=== PATIENT | male | born 1960 | race African-American/Black ===

== ENCOUNTER 2016-12-05 14:27 | Emergency (ER) | payer OTHER ==
[2016-12-05] MEDS ORDERED: VANCOMYCIN 1 GM/NS 250 ML ONE (16:29)
--- NOTE | 2016-12-05 16:48 | PROVIDER DOCUMENTATION ---
HPI-General Adult - General Chief Complaint: Edema Stated Complaint: FEET SWELLING Time Seen by Provider: 12/05/16 16:32 Allergies/Adverse Reactions: Patient Allergies Allergy/AdvReac Type Severity Reaction Status Date / Time No Known Allergies Allergy Verified 12/05/16 17:14 Home Medications: Home Medication List Medication Instructions Recorded Confirmed Last Taken Type Carvedilol 25 mg PO BID 02/18/13 12/05/16 12/05/16 History Aspirin EC 81 mg PO DAILY #30 tablet 05/26/16 12/05/16 12/05/16 Rx Clopidogrel [Plavix] 75 mg PO DAILY #30 tablet 05/26/16 12/05/16 12/05/16 Rx LISINOpril [Prinivil] 20 mg PO DAILY #30 05/26/16 12/05/16 12/05/16 Rx Atorvastatin Calcium [Lipitor] 40 mg PO DAILY 12/05/16 12/05/16 12/05/16 History Clindamycin [Cleocin] 300 mg PO Q6HR #20 capsule 12/05/16 Unknown Rx Tramadol [Ultram] 50 mg PO Q6H PRN PRN #15 tablet 12/05/16 Unknown Rx - History of Present Illness -Gen Adult Nature of Presenting Problems: Pt comes in with complaint of left foot swelling. He has CHF and ESRD with Hemodialysis. He states the swelling has increased over the last couple of days and is very tender. He is worried there is glass stuck in it as he is diabetic. Review of Systems - Adult - REVIEW OF SYSTEMS - ADULT Constitutional: reports: no symptoms reported. denies: chills, fever, fatique, night sweats, weight gain, weight loss Eyes: reports: no symptoms reported. denies: discharge, dry eyes, decreased vision, blurred vision, double vision, eye pain, redness Ears, Nose, Mouth & Throat: reports: no symptoms reported. denies: ear discharge, hearing loss, tinnitus, sinus problem, nose pain, loose teeth, hoarseness, throat pain Cardiovascular: reports: see HPI, edema. denies: chest pain, irregular heart rate, orthopnea, palpitations, poor circulation Respiratory: reports: no symptoms reported. denies: chronic cough, cough, excessive sputum production, hemoptysis, pleurisy, shortness of breath, wheezing Gastrointestinal: reports: poor appetite. denies: abdominal pain, constipation , diarrhea, frequent heartburn, nausea, rectal bleeding, vomiting Genitourinary: reports: no symptoms reported. denies: dysuria, discharge, frequency, frequent UTI's, hematuria, incontinence, urinary retention, urgency Musculoskeletal: reports: no symptoms reported. denies: bone pain, back pain, frequent leg cramps, joint pain, muscle aches, muscle weakness, neck pain Integumentary: reports: see HPI. denies: hives, hair loss, itching, nail changes, rash, skin sores/ulcer, skin thickening Neurological: reports: no symptoms reported. denies: ataxia, dizziness/vertigo , headache/migraines, loss of balance, numbness, seizure, slurred speech, syncope, tremors Psychiatric: reports: no symptoms reported. denies: anxiety, anti-depressant use, depression, emotional problems, panic attacks, suicidal thoughts Endocrine: reports: no symptoms reported. denies: change in skin pigment, excessive sweating, heat intolerance, increased thirst, polyuria Hematologic/Lymphatic: reports: no symptoms reported. denies: blood clots, easy bruising, low blood count, prolonged bleeding, swollen lymph nodes, transfusions Allergic/Immunologic: reports: no symptoms reported. denies: allergic reactions , eczema, frequent infections, hay fever, hives, positive PPD, urticaria All Other Systems: Reviewed and Negative Past History - Adult - PAST MEDICAL HISTORY-ADULT Review of Records: reports: Old Records Reviewed, Nursing Assessment Review, Medications Reviewed, Social history reviewed & non-contributory. Major Childhood Illnesses: reports: denies history Cardiovascular: reports: CHF Respiratory: reports: denies history Gastrointestinal: reports: denies history Obstetrical/Gynecological: reports: denies history Genitourinary: reports: dialysis, ESRD Musculoskeletal: reports: denies history Neurological: reports: CVA Endocrine/Immune: reports: Diabetes Other Conditions: reports: denies history - PRIOR SURGERIES/PROCEDURES Surgical/Procedure History: reports: appendectomy, CABG, orthopedic (extremity) (plate in R forearm), other (port access) - IMMUNIZATION STATUS Childhood Immunizations: See Nurse Assessment Flu Vaccine: See Nurse Assessment - FAMILY HISTORY Family History: reviewed, not pertinent - SOCIAL HISTORY Substance Use: none/never Alcohol Use Frequency: never Living Situation: family Physical Exam-General - PHYSICAL EXAM-ADULT Initial Vital Signs Reviewed: Yes - CONSTITUTIONAL General Appearance: alert, no apparent distress, thin - EYES Eyes: PERRL/EOMI, pink conjunctivae - HEAD, EARS, NOSE, MOUTH & THROAT HENMT: normocephalic/atraumatic, moist mucous membranes, normal ENT inspection - NECK Neck: non-tender, full range of motion - RESPIRATORY Respiratory: chest non-tender, normal breath sounds, no pleuratic chest pain, no respiratory distress, crackles - CARDIOVASCULAR Cardiovascular: normal peripheral pulses, regular rate, rhythm, other (pedal edema right 2+ left 3+) - GASTROINTESTINAL (ABDOMEN) Abdominal Exam: normal bowel sounds, non tender, soft, no organomegaly - GENITOURINARY Rectal Exam: deferred - MUSCULOSKELETAL Back Exam: normal inspection, no CVA tenderness, no vertebral tenderness Extremity: normal range of motion, no calf tenderness, pedal edema, swelling, tenderness Peripheral Pulses: radial (R): 2+, radial (L): 2+, dorsalis-pedis (R): 1+, dorsalis-pedis (L): 1+ - SKIN Integumentary: normal color, normal turgor, warm/dry, other (dry and flaking) - NEUROLOGIC Neurologic: pole shaver helper II-XII nml as tested, grossly normal - PSYCHIATRIC Psych/Mental Status: normal mood/affect, normal thought content, normal thought process, oriented x 3 Progress - PLAN OF CARE/RESULTS Progress/Plan/Lab Results: Laboratory Tests 12/05/16 12/05/16 12/05/16 17:24 17:24 17:24 WBC 7.88 RBC 4.80 Hgb 12.5 L Hct 38.4 L MCV 80.0 L MCH 26.0 L MCHC 32.6 L RDW Std Deviation 16.8 H Plt Count 308 MPV 9.7 Immature Gran % (Auto) 0.0 Neut % (Auto) 71.8 Lymph % (Auto) 18.0 L Barnwell % (Auto) 8.9 Eos % (Auto) 0.9 Baso % (Auto) 0.4 Immature Gran # (Auto) 0.00 Neut # (Auto) 5.66 Lymph # (Auto) 1.42 Barnwell # (Auto) 0.70 H Eos # (Auto) 0.07 Baso # (Auto) 0.03 PT INR PTT (Actin FS) Sodium 138 Potassium 4.2 Chloride 93 L Carbon Dioxide 25 Anion Gap 20 BUN 51 H Creatinine 10.0 H* Estimated GFR/1.73 m2 7 BUN/Creatinine Ratio 5 Glucose 79 Calculated Osmolality 288 Calcium 9.8 Magnesium 2.4 Total Bilirubin 0.44 AST 8 L ALT 10 Alkaline Phosphatase 71 Creatine Kinase 62 Troponin T Ujd-P-Uzbezhfgrfe Pept 76491 H Total Protein 9.6 H Albumin 4.0 Globulin 5.6 Albumin/Globulin Ratio 0.7 12/05/16 12/05/16 17:24 17:24 WBC RBC Hgb Hct MCV MCH MCHC RDW Std Deviation Plt Count MPV Immature Gran % (Auto) Neut % (Auto) Lymph % (Auto) Barnwell % (Auto) Eos % (Auto) Baso % (Auto) Immature Gran # (Auto) Neut # (Auto) Lymph # (Auto) Barnwell # (Auto) Eos # (Auto) Baso # (Auto) PT 10.8 INR 1.06 PTT (Actin FS) 30.5 Sodium Potassium Chloride Carbon Dioxide Anion Gap BUN Creatinine Estimated GFR/1.73 m2 BUN/Creatinine Ratio Glucose Calculated Osmolality Calcium Magnesium Total Bilirubin AST ALT Alkaline Phosphatase Creatine Kinase Troponin T 0.208 H Sns-B-Zplrvvuszez Pept Total Protein Albumin Globulin Albumin/Globulin Ratio Orders Category Date Time Status Cardiac Monitoring DIRECTED Care 12/05/16 16:33 Active Saline Loc NOW Care 12/05/16 16:33 Active CHEST-2 VIEWS [RAD] Stat Exams 12/05/16 16:33 Draft FOOT COMPLETE LEFT [RAD] Stat Exams 12/05/16 16:39 Draft CBC WITH ELECTRONIC DIFF [HEME] Stat Lab 12/05/16 17:24 Completed CK PROFILE [SP CHEM] Stat Lab 12/05/16 17:24 Completed COMPREHENSIVE METABOLIC PANEL [CHEM] Stat Lab 12/05/16 17:24 Completed MAGNESIUM [CHEM] Stat Lab 12/05/16 17:24 Completed PRO B-NATRIURETIC PEPTIDE Stat Lab 12/05/16 17:24 Completed PROTIME WITH INR [COAG] Stat Lab 12/05/16 17:24 Completed PTT [COAG] Stat Lab 12/05/16 17:24 Completed TROPONIN T Stat Lab 12/05/16 17:24 Completed Clindamycin [Cleocin] Med 12/05/16 19:13 Discontinued 450 mg PO NOW ONE Dexamethasone [Decadron] Med 12/05/16 19:14 Discontinued 10 mg IM NOW ONE Tramadol [Ultram] Med 12/05/16 19:13 Discontinued 50 mg PO NOW ONE Vancomycin 1 gm/Ns 250 ml Med 12/05/16 16:29 Discontinued .ROUTE As Directed EKG [EKG] Stat Ther 12/05/16 16:33 Ordered Vital Signs - 24 hr 12/05/16 12/05/16 14:43 17:21 Temperature 98.6 F Pulse Rate 95 H 90 Respiratory 18 16 Rate Blood Pressure 142/86 191/89 O2 Sat by Pulse 100 100 Oximetry - XRAY 1 XRAY Study: Chest Impression: Normal, See EMR Report 2 XRAY: Left XRAY Study: Foot Impression: See EMR Report XRAY Interpretation: bone spur (rad) Departure - Departure Time of Disposition Order: 19:15 DIAGNOSIS: Bone spur, ESRD (end stage renal disease) on dialysis, Cellulitis and abscess of foot excluding toe Disposition: HOME 01 Certified Medical Emergency: Emergent Condition: Good Additional Instructions: follow up with dr salazar for bone spur ED Follow Up Instructions: You have been treated by a care provider in the Emergency Department. These instructions are being provided to you so you can have an understanding of how to care for yourself upon discharge. Upon discharge from the Emergency Department, you are responsible for making arrangements for follow-up care by a physician of your choice. Take all prescribed medications as directed. Return to the Emergency Department immediately for any new or worsening symptoms. You may call the Physician Referral phone number at [phone] to obtain a list of Physicians who are taking new patients. Prescriptions: Tramadol [Ultram] 50 mg PO Q6H PRN PRN #15 tablet PRN Reason: Pain Clindamycin [Cleocin] 300 mg PO Q6HR #20 capsule Referrals: Toñito Dillon MD [Primary Care Provider] - Lino Salazar MD [STAFF PHYSICIAN] - Attestation - Physician/ AUGIE Attestation Patient care was provided by Advanced Practice Provider:: Yes Advanced Practice Provider:: Geovanna Louise Advanced Practice Provider documentation review:: The Mid-level provider documentation, treatment plan and medical decision making was reviewed by the physician who agrees with all treatment and medical decision making by the P.
--- NOTE | 2016-12-05 17:24 | Diag Imaging Result Document ---
PROCEDURE NAME: CHEST-2 VIEWS - 12/05/2016 CHEST 2 VIEWS: COMPARISON: 05/28/16 and 05/22/2016. FINDINGS: Heart size appears within normal limits. There are sternal wires from previous surgery again seen. There are right lower lung granuloma and calcified right hilar lymph nodes from old granulomatous disease which are stable. There is slight prominence of central markings, which appears to be chronic. There is no consolidation, pleural effusion, or pneumothorax identified. There is thoracic spondylosis noted. IMPRESSION: No evidence of acute disease.
[2016-12-05 17:33] LABS: MANUAL DIFF NEEDED? NO
[2016-12-05 17:37] LABS: BASO% 0.4 % (0.0-0.8); EOS# 0.07 X1000 (0.0-0.7); EOS% 0.9 % (0.0-10.0); HEMATOCRIT 38.4 % (42.0-52.0); HEMOGLOBIN 12.5 g/dL (14.0-18.0); LYMPH# 1.42 X1000 (1.2-3.4); MCHC 32.6 g/dL (33-37); MONO% 8.9 % (1.7-9.3); MPV 9.7 FL (7.4-10.4); NEUT% 71.8 % (42.2-75.2); PLT 308 X1000 (130-400)
--- NOTE | 2016-12-05 17:42 | Diag Imaging Result Document ---
PROCEDURE NAME: FOOT COMPLETE LEFT - 12/05/2016 LEFT FOOT 3 VIEWS: FINDINGS: There is generalized soft tissue swelling. There are atherosclerotic calcifications noted. There is calcaneal spurring at the Achilles tendon insertion. There is no fracture or dislocation identified. There are no erosive or destructive changes identified. IMPRESSION: 1. Generalized soft tissue swelling. Atherosclerotic calcifications. 2. No fracture or dislocation identified. 3. No evidence of osteomyelitis. Please note that early osteomyelitis can be radiographically occult. [facility]
[2016-12-05 17:59] LABS: CALCIUM 9.8 mg/dL (8.8-10.2); MAGNESIUM 2.4 mg/dL (1.5-2.7); POTASSIUM 4.2 mmol/L (3.5-5.1); TOTAL BILIRUBIN 0.44 mg/dL (0.20-1.00); TOTAL PROTEIN 9.6 g/dL (6.3-8.3)
[2016-12-05 18:38] LABS: INR 1.06; PROTIME 10.8 Seconds (9.2-11.7); PTT 30.5 Seconds (22.0-36.0)
[2016-12-05] MEDS ORDERED: CLEOCIN PO ONE (19:13)
[2016-12-05] MEDS ORDERED: ULTRAM PO ONE (19:13)
[2016-12-05] MEDS ORDERED: DECADRON IM ONE (19:14)
[2016-12-05 20:20] VITALS: BP 172/84
== END 2016-12-05 20:15 | disposition home or self-care (01) ==
LOC: ED 14:27
DX: L03.116 Cellulitis of left lower limb (principal); M77.32 Calcaneal spur, left foot; I12.0 Hypertensive chronic kidney disease with stage 5 chronic kidney disease or end stage renal disease; N18.6 End stage renal disease; Z99.2 Dependence on renal dialysis; R60.9 Edema, unspecified; Z86.73 Personal history of transient ischemic attack (TIA), and cerebral infarction without residual deficits; E11.9 Type 2 diabetes mellitus without complications; Z79.899 Other long term (current) drug therapy; Z95.1 Presence of aortocoronary bypass graft; Z79.02 Long term (current) use of antithrombotics/antiplatelets; Z79.82 Long term (current) use of aspirin
CPT/HCPCS: 71020; 80053; 82550; 83735; 83880; 84484; 85025; 85610; 85730; 93005; J3370

== ENCOUNTER 2016-12-29 13:47 | Inpatient (IN) ==
--- NOTE | 2016-12-29 16:38 | Diag Imaging Result Document ---
PROCEDURE NAME: CHEST-PORTABLE - 12/29/2016 PORTABLE CHEST X-RAY: COMPARISON: 12/05/2016. FINDINGS: Stable CABG changes. Heart size and pulmonary vascularity is grossly normal. Stable calcified granulomas in the right lung and hilum. No focal infiltrates, pneumothorax, or significant effusion. IMPRESSION: No acute disease.
[2016-12-29 16:59] LABS: BASO% 0.3 % (0.0-0.8); EOS# 0.11 X1000 (0.0-0.7); HEMATOCRIT 28.4 % (42.0-52.0); HEMOGLOBIN 9.6 g/dL (14.0-18.0); IMM GRAN# 0.05 X1000 (0.0-0.04); IMM GRAN% 0.5 % (0.0-0.5); LYMPH% 14.8 % (20.5-51.1); MANUAL DIFF NEEDED? NO; MCH 26.1 PG (27-31); MCHC 33.8 g/dL (33-37); MCV 77.2 FL (81-99); MONO# 0.89 X1000 (0.11-0.59); MONO% 8.2 % (1.7-9.3); MPV 10.5 FL (7.4-10.4); NEUT% 75.2 % (42.2-75.2); PLT 309 X1000 (130-400); RBC 3.68 XMIL (4.7-6.1)
[2016-12-29 17:06] LABS: INR 1.4; PTT 30.3 Seconds (22.0-36.0)
[2016-12-29 17:33] LABS: ALBUMIN 3.3 g/dL (3.5-5.0); CALCIUM 8.9 mg/dL (8.8-10.2); MAGNESIUM 2.5 mg/dL (1.5-2.7); POTASSIUM 5.5 mmol/L (3.5-5.1); TOTAL BILIRUBIN 0.6 mg/dL (0.20-1.00)
--- NOTE | 2016-12-29 17:34 | PROVIDER DOCUMENTATION ---
This chart was entered by Amy Rivas Scribe, acting as scribe for Phan Whalen MD. HPI-Musculoskeletal Pain/Inj - GENERAL Chief Complaint: Extremity Pain Stated Complaint: UNABLE TO GO TO DIALYSIS Time Seen by Provider: 12/29/16 15:15 Source: patient, family (brother in law) - HX OF PRESENT ILLNESS-MUSKULOSKELTAL Nature of Presenting Problem: Pt is 56 y/o M presents to the ED with L lower leg pain. Pt states pain has been present for one month. Pt denies fall or injury. Pt states has not been to dialysis in one month. Pt states can not walk or apply pressure to L foot. Quality of Pain: reports: aching Severity in ED: moderate Onset/Duration: other (1 month) Timing: still present Modifying Factors: improves with: nothing Any recent injury?: No Locality of Occurance: Home Similar Symptoms Previously?: Yes Recently seen or treated by another doctor?: No - LOWER EXTREMITY PAIN/INJURY Lower Extremities Pain: leg: left (lower leg pain ), foot: left Context / Method of Injury: reports: unknown Associated Symptoms: reports: weakness in legs/feet (L). denies: loss of bladder control, loss of bowel control, lower back pain, muscle spasms, numbness in legs/feet, sensory/motor loss, tingling in legs/feet Review of Systems - Adult - REVIEW OF SYSTEMS - ADULT Constitutional: reports: no symptoms reported Eyes: reports: no symptoms reported Ears, Nose, Mouth & Throat: reports: no symptoms reported Cardiovascular: reports: no symptoms reported Respiratory: reports: no symptoms reported Gastrointestinal: reports: no symptoms reported Genitourinary: reports: no symptoms reported Musculoskeletal: reports: other (LLE pain). denies: bone pain, joint pain, neck pain Integumentary: reports: no symptoms reported Neurological: reports: no symptoms reported Psychiatric: reports: no symptoms reported Endocrine: reports: no symptoms reported Hematologic/Lymphatic: reports: no symptoms reported Allergic/Immunologic: reports: no symptoms reported All Other Systems: Reviewed and Negative Past History - Adult - PAST MEDICAL HISTORY-ADULT Review of Records: reports: Nursing Assessment Review, Medications Reviewed, Social history reviewed & non-contributory. Major Childhood Illnesses: reports: denies history Cardiovascular: reports: CHF, HTN Respiratory: reports: denies history Gastrointestinal: reports: denies history Obstetrical/Gynecological: reports: denies history Genitourinary: reports: dialysis, ESRD, kidney disease Musculoskeletal: reports: denies history Neurological: reports: CVA Endocrine/Immune: reports: Diabetes Other Conditions: reports: denies history - PRIOR SURGERIES/PROCEDURES Surgical/Procedure History: reports: appendectomy, CABG, orthopedic (extremity) (plate in R forearm), other (port access) - IMMUNIZATION STATUS Childhood Immunizations: See Nurse Assessment Flu Vaccine: See Nurse Assessment - FAMILY HISTORY Family History: reviewed, not pertinent - SOCIAL HISTORY Smoking: cigarettes, greater than 1 pack/day Provider spent 3-5 mins advising pt. on dangers of tobacco.: Discussed manners to quit use, and f/u contacts for add'l counseling. Substance Use: denies Living Situation: family Physical Exam-Injury Related - Physical Exam-Injury Related Initial Vital Signs Reviewed: Yes General Appearance: appears well, alert, mild distress Eyes: PERRL/EOMI, pink conjunctivae, fundi clear, no AV nicking Head, Ears, Nose, Mouth & Throat: normocephalic/atraumatic, normal ENT inspection, TMs normal, pharynx normal. negative: moist mucous membranes (dry) Neck: non-tender, full range of motion, supple, normal inspection Respiratory: chest non-tender, lungs clear, normal breath sounds, no pleuratic chest pain, no respiratory distress, no accessory muscle use Cardiovascular: normal peripheral pulses, regular rate, rhythm, no edema, no gallop, no JVD, no murmur Peripheral Pulses: dorsalis-pedis (R): 2+, dorsalis-pedis (L): 2+ Abdominal Exam: normal bowel sounds, non tender, soft, no organomegaly, no pulsatile mass Lymphatic: no adenopathy Back Exam: normal inspection, no CVA tenderness, no vertebral tenderness Extremity: normal range of motion, non-tender, calf tenderness (L), pedal edema (bilateral) Integumentary: normal color, warm/dry Neurologic: grossly normal Psych/Mental Status: normal mood/affect Progress - PLAN OF CARE/RESULTS Progress/Plan/Lab Results: Vital Signs - 8 hr 12/29/16 13:50 Temperature 97.6 F Pulse Rate 92 H Respiratory Rate 14 Blood Pressure 151/80 O2 Sat by Pulse Oximetry 98 Laboratory Results - last 24 hr 04/04/0912/29/16 12/29/16 16:38 16:38 16:38 WBC 10.79 RBC 3.68 L Hgb 9.6 L Hct 28.4 L MCV 77.2 L MCH 26.1 L MCHC 33.8 RDW Std Deviation 17.3 H Plt Count 309 MPV 10.5 H Immature Gran % (Auto) 0.5 Neut % (Auto) 75.2 Lymph % (Auto) 14.8 L Bell % (Auto) 8.2 Eos % (Auto) 1.0 Baso % (Auto) 0.3 Immature Gran # (Auto) 0.05 H Neut # (Auto) 8.11 H Lymph # (Auto) 1.60 Bell # (Auto) 0.89 H Eos # (Auto) 0.11 Baso # (Auto) 0.03 PT INR PTT (Actin FS) Sodium 17 L* Potassium 5.5 H Chloride 100 Carbon Dioxide 17 L Anion Gap 26 BUN 136 H Creatinine 17.1 H* Estimated GFR/1.73 m2 4 BUN/Creatinine Ratio 8 Glucose 125 H Calculated Osmolality 328 Calcium 8.9 Magnesium 2.5 Total Bilirubin 0.60 AST 59 H ALT 81 H Alkaline Phosphatase 82 Creatine Kinase 250 H Troponin T Zrk-B-Jsvpqqogryh Pept > 12273 H Total Protein 8.0 Albumin 3.3 L Globulin 4.7 Albumin/Globulin Ratio 0.7 12/29/16 12/29/16 16:38 16:38 WBC RBC Hgb Hct MCV MCH MCHC RDW Std Deviation Plt Count MPV Immature Gran % (Auto) Neut % (Auto) Lymph % (Auto) Bell % (Auto) Eos % (Auto) Baso % (Auto) Immature Gran # (Auto) Neut # (Auto) Lymph # (Auto) Bell # (Auto) Eos # (Auto) Baso # (Auto) PT 15.0 H INR 1.40 PTT (Actin FS) 30.3 Sodium Potassium Chloride Carbon Dioxide Anion Gap BUN Creatinine Estimated GFR/1.73 m2 BUN/Creatinine Ratio Glucose Calculated Osmolality Calcium Magnesium Total Bilirubin AST ALT Alkaline Phosphatase Creatine Kinase Troponin T 0.494 H* Gef-H-Sanvthwaujs Pept Total Protein Albumin Globulin Albumin/Globulin Ratio Orders Category Date Time Status Cardiac Monitoring DIRECTED Care 12/29/16 16:08 Active Saline Loc NOW Care 12/29/16 16:08 Active CHEST-PORTABLE [RAD] Stat Exams 12/29/16 16:08 Completed CBC WITH ELECTRONIC DIFF [HEME] Stat Lab 12/29/16 16:38 Completed CK PROFILE [SP CHEM] Stat Lab 12/29/16 16:38 Results COMPREHENSIVE METABOLIC PANEL [CHEM] Stat Lab 12/29/16 16:38 Results MAGNESIUM [CHEM] Stat Lab 12/29/16 16:38 Results PRO B-NATRIURETIC PEPTIDE Stat Lab 12/29/16 16:38 Completed PROTIME WITH INR [COAG] Stat Lab 12/29/16 16:38 Completed PTT [COAG] Stat Lab 12/29/16 16:38 Completed TROPONIN T Stat Lab 12/29/16 16:38 Completed EKG [EKG] Stat Ther 12/29/16 16:08 Ordered Venous U/S Bilateral Legs Stat Ther 12/29/16 16:08 Completed Result Diagrams: 12/29/16 16:38 12/29/16 16:38 - EKG 1 Time of EKG reading by physician:: 17:00 EKG Read and Signed by:: Phan Whalen EKG Interpretation (*Must complete 3 of following elements*): Abnormal Rate: 92 Rhythm: normal sinus rhythm Comments: possible left atrial enlargement; nonspecific ST abnormality. - ULTRASOUND (By Radiology) 1 US Study: other (Venous Bilateral) Impression: Normal US Results: Negative for DVT - CHANGE OF SHIFT REPORT (ED Provider) Report Given and Care Transferred to:: Dr. Tadeo Time of Transfer: 17:53 Items Pending: Physician Consult/Arrival Departure - Departure Time of Disposition Decision: 17:37 DIAGNOSIS: Elevated troponin, Renal failure Leg pain Qualifiers: Laterality: left Qualified Code(s): M79.605 - Pain in left leg Disposition: ADMITTED INPATIENT 09 Certified Medical Emergency: Emergent Condition: Stable Additional Freetext Instructions: ED Follow Up Instructions: You have been treated by a care provider in the Emergency Department. These instructions are being provided to you so you can have an understanding of how to care for yourself upon discharge. Upon discharge from the Emergency Department, you are responsible for making arrangements for follow-up care by a physician of your choice. Take all prescribed medications as directed. Return to the Emergency Department immediately for any new or worsening symptoms. You may call the Physician Referral phone number at [phone] to obtain a list of Physicians who are taking new patients. Referrals and Follow-Ups: Toñito Dillon MD [Primary Care Provider] - This chart was documented by the indicated scribe, (Amy Rivas Scribe) and accurately reflects the services I performed and decisions made by me, Phan Whalen MD, as attested by the provider's signature.
[2016-12-29 18:05] LABS: CK INDEX 1.7 (0.0-2.5); CK-MB 4.3 ng/mL (0.0-5.0)
[2016-12-29] MEDS ORDERED: TYLENOL PO PRN (18:47)
--- NOTE | 2016-12-29 20:15 | HISTORY AND PHYSICAL ---
CHIEF COMPLAINT: Left lower extremity pain and bilateral lower extremity edema. HISTORY OF PRESENT ILLNESS: This 56-year-old, male with a past medical history of cerebrovascular accident x2 with left side weakness and dysarthria, type 2 diabetes, end-stage renal disease on hemodialysis, hypertension, hyperlipidemia and coronary artery disease status post CABG, came to the emergency department with a chief complaint of left lower extremity pain, bilateral lower extremity edema that has been happening for the past 3 weeks. As per the patient, the pain is located on the left lower extremity and it is a burning sensation, and it feels like needles on the plantar aspect of the left foot. Also he has been having bilateral lower extremity edema for the past 3 weeks or more. He has not been very compliant with the hemodialysis. The last time this patient had hemodialysis was apparently 3 weeks ago but family members at the bedside think that probably it was more than that. He denies nausea, vomiting, diarrhea, or constipation. This patient will be admitted to get hemodialysis and also I will ask for a lower extremity arterial ultrasound. Apparently Dr. Warner has been following this patient as an outpatient. Apparently there is some kind of arterial deficiency at the level of the lower extremities. REVIEW OF SYSTEMS: The 14 points of review of systems were reviewed and were all negative except under HPI. PAST MEDICAL HISTORY: CVA x2 with left-sided weakness and dysarthria, type 2 diabetes, end-stage renal disease with Sunday, , and Sunday hemodialysis, hypertension, hyperlipidemia, and history of coronary artery disease status post CABG. PAST SURGICAL HISTORY: Left arm AV fistula for hemodialysis, right open arm surgery for fistula as well, previous Vas-Cath for hemodialysis and removal, coronary arterial bypass grafting and right lower arm surgery for fracture. SOCIAL HISTORY: Apparently this patient is still smoking for more than 20 years a pack a day. No alcohol. No drugs. FAMILY HISTORY: Coronary artery disease, diabetes, hypertension. ALLERGIES: No known allergies. MEDICATIONS: Carvedilol 25 mg p.o. b.i.d., lisinopril 20 mg p.o. daily, Lipitor 80 mg daily p.o. PHYSICAL EXAMINATION: VITAL SIGNS: Temperature 97.6 degrees, pulse 92, respiratory rate 14, blood pressure 151/80, O2 saturation 98 on room air. HEENT: Head normocephalic. No trauma. PERRLA. NECK: Supple. No JVD. No masses. Central trachea. CHEST: Clear to auscultation. Bilateral lower lung rales. No wheezing. ABDOMEN: Soft, nontender, nondistended. No hepatosplenomegaly. EXTREMITIES: Bilateral lower extremity edema 2+ up to the knee. NEUROLOGICAL EXAMINATION: The patient is alert. He has left-sided weakness 3 to 4/5 and dysarthria. This patient is alert and oriented x3. LABORATORY: WBC 10.7, hemoglobin 9.6, hematocrit 28.4, platelets 309, PT 15, INR 1.4. Sodium 143, potassium 5.5, chloride 100, BUN 136, creatinine 17.1, glucose 125, calcium 8.9, magnesium 2.5, troponin 0.4. proBNP more than 35,000, albumin 3.3. ASSESSMENT AND PLAN: 1. End-stage renal disease on hemodialysis. This patient is noncompliant. He has not been on dialysis for at least 3 weeks. I will keep this patient hospitalized to get dialysis. I had a conversation with the patient and his sister about this problem. It looks like this patient is very noncompliant with treatment. 2. Left lower extremity pain, likely related to neuropathy. The patient is feeling needles and burning sensation at the left leg. I will try to control his blood sugar and electrolytes. We will monitor. 3. Hypertension. I will keep this patient on his regular medication and I will add medications accordingly. 4. Type 2 diabetes. I will ask for a hemoglobin A1c. This patient is not taking any kind of diabetes medication at home. He was told that because he lost some weight, he is no longer diabetic. 5. Peripheral vascular disease. I will order an arterial ultrasound. Apparently this patient has been seen by Dr. Warner. I will monitor. 6. History of coronary artery disease status post coronary artery bypass graft. This patient is not having any chest pain or shortness of breath. We will monitor. 7. Tobacco abuse. This patient has been highly advised against tobacco use. I will continue with daily cessation education. I do not think he is planning to quit at this moment. 8. History of cerebrovascular accident x2 with left-sided weakness and dysarthria. We will monitor. 9. DVT prophylaxis. I will put this patient on heparin subcutaneously. cc: Christopher Correa MD [facility]
[2016-12-29] MEDS: ULTRAM PO PRN (20:27)
[2016-12-29] MEDS: COREG PO SCH (20:28)
[2016-12-29] MEDS: HEPARIN SUBQ SCH (20:28)
[2016-12-29] MEDS: HUMULIN R SUBQ SCH (20:55)
[2016-12-29] MEDS: ZOFRAN IV PRN (22:08)
[2016-12-30] MEDS: HUMULIN R SUBQ SCH ×4 (06:59→22:30)
[2016-12-30 07:55] LABS: BASO% 0.3 % (0.0-0.8); EOS# 0.03 X1000 (0.0-0.7); EOS% 0.3 % (0.0-10.0); HEMATOCRIT 28.3 % (42.0-52.0); HEMOGLOBIN 9.5 g/dL (14.0-18.0); IMM GRAN# 0.06 X1000 (0.0-0.04); IMM GRAN% 0.6 % (0.0-0.5); LYMPH# 1.55 X1000 (1.2-3.4); LYMPH% 14.8 % (20.5-51.1); MANUAL DIFF NEEDED? YES; MCH 25.9 PG (27-31); MCHC 33.6 g/dL (33-37); MCV 77.1 FL (81-99); MONO# 0.92 X1000 (0.11-0.59); MONO% 8.8 % (1.7-9.3); MPV 10.3 FL (7.4-10.4); NEUT% 75.2 % (42.2-75.2); PLT 259 X1000 (130-400); RBC 3.67 XMIL (4.7-6.1)
[2016-12-30 08:11] LABS: ALBUMIN 3.2 g/dL (3.5-5.0); CALCIUM 8.9 mg/dL (8.8-10.2); TOTAL BILIRUBIN 0.58 mg/dL (0.20-1.00); TOTAL PROTEIN 8.1 g/dL (6.3-8.3)
[2016-12-30 08:12] LABS: LYMPHS 17 % (21-51); MONO 7 % (1-9); POLYCHROM OCCASIONAL
[2016-12-30] MEDS ORDERED: NS 2,000 ML MISC PRN (08:26)
[2016-12-30] MEDS ORDERED: HEPARIN IV PRN (08:26)
[2016-12-30] MEDS ORDERED: TIGHT: 0.2 ML/HR MISC PRN (08:26)
[2016-12-30] MEDS ORDERED: NS 2,000 ML ONE (09:46)
[2016-12-30] MEDS ORDERED: HEPARIN ONE (09:46)
[2016-12-30] MEDS ORDERED: EPOGEN SUBQ ONE (13:11)
--- NOTE | 2016-12-30 13:44 | PROGRESS NOTE ---
DATE: 12/30/2016 Mr. Cantrell is currently on dialysis. He is tolerating his treatment well. Again we will shorten his treatments to 2-1/2 hours to avoid disequilibrium. Two potassium bath. 3 L to 4 L ultrafiltration. cc: Jacinto Garland MD
--- NOTE | 2016-12-30 14:32 | PROGRESS NOTE ---
DATE: 12/30/2016 SUBJECTIVE: This patient is getting dialysis at this moment, he is not complaining of chest pain or shortness of breath. He has been complaining of left lower extremity pain, as per the patient. He has been evaluated by Dr. Warner secondary to hypoperfusion. I will consult surgery to evaluate this patient. OBJECTIVE: Vital Signs: Temperature 97.4 degrees, pulse 82, respiratory rate 17, blood pressure 135/77, oxygen saturation 100% on room air. HEENT: Head normocephalic. No trauma. PERRLA. Neck: Supple. No JVD. No masses. Central trachea. Chest: Clear to auscultation bilateral. Lungs: Rales at the bases. No wheezing. Abdomen: Soft, nontender, nondistended. No hepatosplenomegaly. Extremities: Bilateral lower extremity edema 2+ up to the knee, there is some coldness at the level of the left lower extremity. Neurological: The patient is alert. He has left-sided weakness 3-4/5, and dysarthria. This patient is alert and oriented x3. LABORATORY: WBC 10.4, hemoglobin 9.5, hematocrit 28.3, platelets 259,000. Sodium 142, potassium 6, chloride 100, bicarbonate 16, BUN 136, creatinine 17.5, glucose 103, albumin 3.2. ASSESSMENT AND PLAN: 1. End-stage renal disease on hemodialysis. This patient is getting hemodialysis at this moment. This patient is not compliant. He has not been on dialysis for the past 3 weeks at least. 2. Left lower extremity pain likely related to neuropathy but also apparently this patient has hypoperfusion. I ordered already an arterial ultrasound and as per the patient, he has been followed by Dr. Warner, he has been consulted. 3. Hypertension. I will continue with the same medications. 4. Type 2 diabetes. His hemoglobin A1c is 5 and he is not on any medication. As per the patient, he has been losing a lot of weight and he is no longer requiring diabetes medication and the blood sugar has been controlled without treatment. 5. Peripheral vascular disease. As I mentioned before, I ordered an arterial ultrasound, and Surgery Department has been consulted. 6. History of coronary artery disease status post CABG. He is not complaining of shortness of breath or chest pain at this moment. We will monitor. 7. Tobacco abuse. This patient has been highly advised against tobacco abuse. I will continue with daily cessation education but I do not think he is planning to quit smoking at this moment. 8. History of CVA x2 with left-sided weakness and dysarthria. Will monitor. 9. DVT prophylaxis. Continue with heparin subcutaneously. cc: Christopher Correa MD
--- NOTE | 2016-12-30 15:02 | CONSULTATION ---
DATE OF CONSULTATION: 12/30/2016 REASON FOR CONSULTATION: ESRD on dialysis. HISTORY OF PRESENT ILLNESS: Mr. Cantrell is a 56-year-old man who is well known to me. He has diabetes, hypertension, hyperlipidemia, coronary disease, peripheral vascular disease. He has routine scheduled dialysis on Sunday, , and Sunday. He has been skipping dialysis for up to 3 weeks now because of complaints of lower left leg pain. This is a problem that he and I have been dealing with for several months. His initial description suggested that it was neuropathic in origin and we treated him with escalating doses of Neurontin with essentially no benefit. Ultimately he was referred Dr. Warner for possible and vascular insufficiency. Because of this pain he has not been willing to go to dialysis. He came to the emergency room because his pain was worse and he was having swelling. No significant shortness of breath. He does have anorexia but no vomiting, and feels that he is losing weight. No chest pain or palpitation. No diarrhea. PAST MEDICAL HISTORY: As listed above. HOME MEDICATIONS: Include insulin, atorvastatin, tramadol, lisinopril, aspirin, clopidogrel, carvedilol. ALLERGIES: None. SOCIAL HISTORY: He still smokes. He gets of most of his social support from non family friends. FAMILY HISTORY: Positive for coronary disease, diabetes, hypertension. REVIEW OF SYSTEMS: Otherwise noncontributory. PHYSICAL EXAMINATION: Vital Signs: Blood pressure 135/77, heart rate 82, respirations 17, afebrile. Generally: He is a middle-aged, chronically ill man, in no acute distress. Skin: Warm and dry. He has obvious weight loss with obvious muscle loss on the face. Pupils are equal. Conjunctivae are pink. Oropharynx is clear. Tongue is deviated to the right. Neck: Neck veins are not distended. Trachea is midline. Heart: Regular with gallop but no rubs. Lungs: Have equal breath sounds. No crackles or wheezes. Abdomen: Soft, nontender. Bowel sounds are present. No organomegaly or masses. Extremities: Have 2+ edema. No clubbing or cyanosis. Pulses are not palpable in the feet. There is no ulceration or loss of integumentary continuity. Neurologic Exam: Nonfocal with the exception again as above. He has lateral deviation of the tongue, he has dysarthria following a previous stroke. LABORATORY DATA: Sodium 142, potassium 6.0, chloride 100, bicarbonate 16, BUN 136, creatinine 17.5, hemoglobin 9.5. IMPRESSION: 1. End-stage kidney disease. He has not dialyzed for weeks. We will dialyze him today and Sunday and then several days in a row in order to address his marked uremia. We will shorten his treatment today to avoid disequilibrium. A 2 potassium bath with standard 37 bicarbonate. 2. Leg pain. Vascular studies have been ordered. I will consult Dr. Warner for Sunday. He will likely need a below-knee amputation on the left. 3. Anemia. Stable. We will dose with erythropoietin and check his iron stores. 4. Hypertension. Well controlled. cc: Jacinto Garland MD
--- NOTE | 2016-12-30 17:36 | CONSULTATION ---
DATE OF CONSULTATION: 12/30/2016 HISTORY OF PRESENT ILLNESS: This 56-year-old male with multiple medical issues. No. 1 coronary disease. He has end-stage renal disease on dialysis for several years. Known peripheral vascular disease, diabetes and noncompliance with hemodialysis. He presents with no dialysis for several weeks, evidence of electrolyte abnormality, volume overload and lower extremity pain. He has had pain for last several months. He has been followed by Dr. Warner as an outpatient. He had LEAs performed on the 27 of December that showed severe bilateral lower extremity peripheral vascular disease most likely very proximal aortoiliac in nature but also changes distally. Denies any wounds, has to sit on side of bed with feet dangling, symptoms worse on left lower extremity describes as pins and needles. REVIEW OF SYSTEMS: Ten point negative what is mentioned in his HPI. PAST MEDICAL HISTORY: 1. Peripheral vascular disease. 2. End-stage renal disease. 3. Coronary artery disease. 4. Diabetes. 5. He has had strokes x2 with dysarthria and left-sided weakness. 6. Hypertension. 7. Hyperlipidemia PAST SURGICAL HISTORY: He has had multiple dialysis access procedures with a functional right upper extremity straight AV graft currently, he has had coronary artery bypass grafting with harvest the left greater saphenous vein, has had right arm surgery for fracture. SOCIAL HISTORY: Smokes daily. No alcohol, no drugs, he has got family here with him. FAMILY HISTORY: Of coronary disease, diabetes, hypertension. MEDICATIONS: Include beta charity, DEBBIE inhibitor and a statin. PHYSICAL EXAMINATION: Vital Signs: Temperature is 97.5, pulse 84, blood pressure 119/55, oxygen saturation 100% on room air. General: He is alert sitting on edge of bed with his feet dangling. Cardiovascular: Normal rate, regular rhythm. Pulmonary: No increased work of breathing. Abdomen: Soft, nontender, nondistended. Extremities: There is a right upper arm AV graft with a good thrill, his hands well perfused bilaterally. There is left hand IV. His bilateral feet have chronic ischemic change, I do not see any tissue loss, they are cool but not cyanotic. I do not feel pedal pulses. I do not feel popliteal pulses but he has 1+ bilateral femoral pulses and it is a little bit stronger on the right than is left, he has got a long scar from his ankle to his groin on his left from a saphenous vein harvest. LABS: White count 10, hematocrit 28, platelets are 259,000. INR is 1.4, creatinine was 17.5, potassium today 6, bicarb 16, glucose 110, AST is elevated at 76, ALT elevated 101, troponins are 0.494, BNP was greater than 35,000, CK is mildly elevated at 250. Bilateral lower extremity segmental Doppler exam on December 27 shows an TEODORA of the right of 0.34, on the left 0.58 with waveforms correlating to diffuse disease but most likely aortoiliac. ASSESSMENT AND PLAN: This is a 56-year-old male with multiple medical issues including noncompliance with known peripheral vascular disease that is severe. He most likely has ischemic rest pain and has ABIs that would correlate with this. I do not see any tissue loss, or an immediate threat to the limb but I do think his symptoms are most likely related to this. He has not had a CT angiogram on review his record to document the lesion, I would recommend obtaining CT angiogram with run off to define this to see if there is a surgical target for either endovascular or open repair although right now he is not a surgical candidate given his multiple electrolyte abnormalities and volume overload state. Dr. Garland following, plans dialysis to correct these abnormalities. In the meantime would keep his feet warm and apply the boots. He would at least need an aspirin and a statin and could consider starting Pletal or Trental in the meantime, however these are unlikely to improve his symptoms currently. Will follow along , follow up results of the CT angiogram and will discuss his case further with Dr. Warner who knows him from previous surgeries. cc: Aileen Borja MD [facility]
[2016-12-30] MEDS: PRINIVIL PO SCH (19:06)
[2016-12-30] MEDS: COREG PO SCH ×2 (19:06→22:29)
[2016-12-30] MEDS: LIPITOR PO SCH (19:06)
[2016-12-30] MEDS: HEPARIN SUBQ SCH ×2 (19:07→22:25)
[2016-12-30] MEDS: ULTRAM PO PRN (22:26)
[2016-12-31] MEDS: ULTRAM PO PRN ×2 (06:29→22:09)
[2016-12-31] MEDS: HUMULIN R SUBQ SCH ×4 (06:30→22:10)
[2016-12-31 07:38] LABS: IRON SATURATION 36 %; TIBC 137 ug/dL; TOTAL IRON 49 ug/dL (53-167); UNBOUND IRON 88 ug/dL (112-346)
[2016-12-31 08:15] LABS: MANUAL DIFF NEEDED? NO
[2016-12-31 08:17] LABS: BASO% 0.3 % (0.0-0.8); EOS# 0.21 X1000 (0.0-0.7); EOS% 2.4 % (0.0-10.0); HEMATOCRIT 30.4 % (42.0-52.0); HEMOGLOBIN 10.1 g/dL (14.0-18.0); IMM GRAN# 0.03 X1000 (0.0-0.04); IMM GRAN% 0.3 % (0.0-0.5); LYMPH% 19.3 % (20.5-51.1); MCH 25.8 PG (27-31); MCHC 33.2 g/dL (33-37); MCV 77.7 FL (81-99); MONO# 0.77 X1000 (0.11-0.59); MONO% 8.7 % (1.7-9.3); MPV 10.1 FL (7.4-10.4); PLT 290 X1000 (130-400); RBC 3.91 XMIL (4.7-6.1)
[2016-12-31 08:25] LABS: FERRITIN 2663 ng/mL (30-400)
[2016-12-31] MEDS: COREG PO SCH ×2 (08:50→22:09)
[2016-12-31] MEDS: LIPITOR PO SCH (08:50)
[2016-12-31] MEDS: HEPARIN SUBQ SCH ×2 (08:50→22:10)
[2016-12-31] MEDS: PRINIVIL PO SCH (08:50)
[2016-12-31 09:19] LABS: ALBUMIN 3.4 g/dL (3.5-5.0); CALCIUM 8.5 mg/dL (8.8-10.2); POTASSIUM 4.4 mmol/L (3.5-5.1); TOTAL BILIRUBIN 0.81 mg/dL (0.20-1.00); TOTAL PROTEIN 7.6 g/dL (6.3-8.3)
--- NOTE | 2016-12-31 09:30 | PROGRESS NOTE ---
DATE: 12/31/2016 SUBJECTIVE: The patient continues have pain in his bilateral feet but no worse than it has been previously. He is eating breakfast this morning. OBJECTIVE: Vital signs: Afebrile, pulse 68, blood pressure 120/63, oxygen saturation 96% on room air. General: He is alert. Extremities: Distal just above the ankle level is warm. There is no swelling and no real pain to palpation. LABS: White count of 8, hematocrit 30. Glucose is 89. ASSESSMENT AND PLAN: This 56-year-old male with multiple medical issues including severe peripheral vascular disease and likely aortoiliac disease. He does appear to have ischemic rest pain. Recommend obtaining a CT angiogram of the abdomen pelvis with runoff to the lower extremities to evaluate for a reversible lesion. We will continue to follow along. He does not have tissue loss. Given his electrolyte derangements and volume overload state would not be an operative candidate right now, but there is not an emergent need for surgery at this point. cc: Aileen Borja MD
--- NOTE | 2016-12-31 17:27 | PROGRESS NOTE ---
DATE: 12/31/2016 SUBJECTIVE: This patient states that he is feeling better. He had dialysis yesterday. The lower extremities are less painful, especially the left one. Surgery Department is on board as well and they recommended to get a CT angiogram of the abdomen, pelvis, run-off to the lower extremities. The order has been placed for tomorrow morning. OBJECTIVE: Vital Signs: Temperature 97.6 degrees, pulse 82, respiratory rate 14, blood pressure 135/77. Oxygen saturation 96 on room air. HEENT: Head normocephalic. No trauma. Pupils equal, round, and reactive to light and accommodation. Neck: Supple. No jugular venous distention. No masses. Central trachea. Chest: Clear to auscultation. No wheezing. No rales. Cardiovascular: Regular rate and rhythm. No murmurs. Abdomen: Soft, nontender, nondistended. No hepatosplenomegaly. Extremities: Bilateral lower extremity edema, about 2+ up to the knee. There is some coldness at the level of the left lower extremity. Neurological Examination: The patient is alert and oriented x3. He has left side weakness around 3 to 4/5 and dysarthria. This patient is alert. LABORATORIES: WBC 8.8, hemoglobin 10.1, hematocrit 30.4, platelets 290,000. Sodium 141, potassium 4.4, chloride 97, bicarbonate 25. BUN 77, creatinine 12.1, glucose 79, calcium 8.5. ASSESSMENT AND PLAN: 1. End-stage renal disease on hemodialysis. He received hemodialysis yesterday. This patient is feeling much better. We will continue following the recommendations of Nephrology Department. 2. Left lower extremity pain, likely related to neuropathy/ischemia. A CT angiogram of the abdomen and pelvis with run-off to the lower extremities has been placed. Surgery Department is following this patient. 3. Hypertension. Continue with the same medications. The blood pressure is controlled. 4. Type 2 diabetes. The hemoglobin A1c is 5. He is not on any medication at home. He has been losing weight and apparently he was told to lose stop the medications. We will continue to monitor. 5. Peripheral vascular disease. CT angiogram has been ordered and Surgery Department has been following this patient. I do not think this is a good candidate for any kind of procedure at this moment. 6. History of coronary artery disease, status post coronary artery bypass graft. He is not complaining of shortness of breath or chest pain at this moment. We will monitor. 7. Tobacco abuse. This patient has been highly advised against tobacco abuse. We will continue with daily cessation education. 8. History of cerebrovascular accident x2 with left side weakness and dysarthria. Will monitor. 9. Deep venous thrombosis prophylaxis. Continue with heparin subcutaneously. cc: Christopher Correa MD
[2016-12-31] MEDS: ZOFRAN IV PRN (18:49)
[2017-01-01] MEDS: HUMULIN R SUBQ SCH ×4 (06:31→23:34)
[2017-01-01 06:38] LABS: MANUAL DIFF NEEDED? NO
[2017-01-01 06:57] LABS: BASO% 0.3 % (0.0-0.8); EOS# 0.21 X1000 (0.0-0.7); EOS% 2.2 % (0.0-10.0); HEMATOCRIT 31.4 % (42.0-52.0); HEMOGLOBIN 10.4 g/dL (14.0-18.0); IMM GRAN# 0.02 X1000 (0.0-0.04); IMM GRAN% 0.2 % (0.0-0.5); LYMPH# 1.54 X1000 (1.2-3.4); LYMPH% 15.9 % (20.5-51.1); MCH 25.9 PG (27-31); MCHC 33.1 g/dL (33-37); MCV 78.1 FL (81-99); MONO# 1.04 X1000 (0.11-0.59); MONO% 10.8 % (1.7-9.3); NEUT% 70.6 % (42.2-75.2); PLT 282 X1000 (130-400); RBC 4.02 XMIL (4.7-6.1)
--- NOTE | 2017-01-01 07:15 | EKG Report ---
Test Performed on : 12/29/2016 5:00:10 PM Test Reason : LEG PAIN Blood Pressure : / mmHG Vent. Rate : 092 BPM Atrial Rate : 092 BPM P-R Int : 116 ms QRS Dur : 092 ms QT Int : 378 ms P-R-T Axes : 055 048 049 degrees QTc Int : 467 ms Normal sinus rhythm. Possible Left atrial enlargement Nonspecific ST abnormality Abnormal ECG When compared with ECG of 28-MAY-2016 20:27, ST no longer depressed in Inferior leads T wave inversion no longer evident in Inferior leads Nonspecific T wave abnormality no longer evident in Lateral leads Unconfirmed Result
[2017-01-01 07:23] LABS: CALCIUM 8.9 mg/dL (8.8-10.2); POTASSIUM 4.4 mmol/L (3.5-5.1)
[2017-01-01] MEDS ORDERED: HEPARIN ONE (07:30)
[2017-01-01] MEDS ORDERED: NS 2,000 ML ONE (07:31)
[2017-01-01] MEDS ORDERED: HEPARIN IV PRN (07:38)
[2017-01-01] MEDS ORDERED: NS 2,000 ML MISC PRN (07:38)
[2017-01-01] MEDS ORDERED: TIGHT: 0.2 ML/HR MISC PRN (07:38)
--- NOTE | 2017-01-01 10:48 | PROGRESS NOTE ---
DATE: 01/01/2017 SUBJECTIVE: Patient is seen while on dialysis. He continues to complain of pain to the leg. OBJECTIVE: Vital Signs: Temperature 97.9 degrees, pulse 67, respiratory rate 16, blood pressure 115/75. Intake 360 mL. Output not measured. Physical Examination: General: This is a middle-aged gentleman, chronically ill-appearing. He is resting in bed. He is awake and alert. He is in no acute distress. HEENT: Normocephalic, atraumatic. Oral mucosa moist. Dentition poor. Neck: Supple. Trachea midline. There is no JVD noted. Cardiovascular: Reveals a regular rate and rhythm. S4. Pulmonary : He has equal excursion. He is clear bilaterally with no increased work of breathing. Abdomen: Soft, with positive bowel sounds. : Not inspected. Minimal void. Extremities: He continues to have 1+ pretibial edema. He is moving his upper extremities. Integumentary: Skin is warm and dry. Dialysis access CDI. Lab Data: WBC of 9.6, hemoglobin 10.4. Sodium 140, potassium 4.4, CO2 24, BUN 87, creatinine 12.6, calcium 8.5, albumin 3.4. ASSESSMENT AND PLAN: 1. End-stage renal disease for hemodialysis. Patient has been noncompliant for several weeks. We are planning to dialyze him multiple days in a row for his dialysis needs. Patient is in agreement with the plan. 2. Leg pain, followed by primary and surgery. 3. Anemia, stable. Continue to monitor. 4. Hypertension, controlled. 5. Electrolytes, acid-base balance. These are in target. We will dialyze daily. Seen, data reviewed, discussed with Keegan Mcmillan on 01/01/17. I agree with the above assessment and plan of care. rg Dictated by EDILMA Hebert for Jacinto Garland MD cc: Jacinto Garland MD [facility]
[2017-01-01] MEDS: COREG PO SCH ×3 (15:03→21:42)
[2017-01-01] MEDS: PRINIVIL PO SCH (15:06)
[2017-01-01] MEDS: LIPITOR PO SCH (15:06)
[2017-01-01] MEDS: HEPARIN SUBQ SCH ×2 (15:06→21:42)
--- NOTE | 2017-01-01 15:14 | Diag Imaging Result Document ---
PROCEDURE NAME: ANGIOGRAM/AORTA W/RUNOFF - 01/01/2017 CT AORTOGRAM WITH RUNOFF WITH CONTRAST. MIP IMAGES WERE OBTAINED. FINDINGS: The stomach is distended with fluid. No abnormality to the liver or spleen. Normal pancreas and gallbladder. No distinct adrenal nodules. No renal masses. No bowel obstruction. The urinary bladder is distended. The prostate is not enlarged. Severe atherosclerosis throughout the abdomen, pelvis, and lower extremities. Atherosclerotic plaque at the takeoff of the celiac and superior mesenteric arteries. Stenoses of less than 40%. There is also atherosclerotic plaque at the takeoff of each renal artery. Stenosis of between 50% and 70%. Mild dilatation to the distal abdominal aorta with a maximum diameter of 2.3 cm. RIGHT: Marked aneurysmal dilatation to the right common carotid artery. Maximum diameter is 4.6 cm. Stenosis of between 70%-90% in the proximal external iliac artery. The mid and distal external iliac artery are normal. Stenosis of nearing 90% in the common femoral artery. Complete occlusion in the proximal superficial femoral artery. The deep femoral artery is also occluded proximally. There are multiple small muscular collaterals extending into the lower extremity. There is significant atherosclerosis in the arteries of the calf. It is difficulty to tell whether there is contrast within the arteries or this simply represents plaque. LEFT: Aneurysmal dilatation to the common iliac artery with a maximum diameter of 1.9 cm. Stenosis in the proximal external iliac artery between 50%-70%. The mid and distal external iliac artery are normal. Stenosis in the common femoral artery of approximately 70%. There is complete occlusion in the proximal superficial femoral artery. There is also occlusion in the deep femoral artery. Muscular collaterals take contrast into the popliteal artery. Prominent atherosclerosis in the anterior and posterior tibial arteries. It is difficult to tell if there is flow within these. IMPRESSION: 1. Severe atherosclerosis in the abdomen, pelvis, and lower extremities. Occlusion of each superficial femoral and deep femoral arteries. Prominent plaque in the anterior and posterior tibial arteries bilaterally. 2. 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 3. Stenosis in the proximal right external iliac artery. [facility]
--- NOTE | 2017-01-01 15:58 | PROGRESS NOTE ---
DATE: 01/01/2017 SUBJECTIVE: This patient states that he is feeling better. He has dialysis today. The lower extremities are still painful, mostly the left one. Surgery Department is on board. We had a CT angiogram of the aortic with runoff lower extremities that showed severe atherosclerosis in the abdomen, pelvis and lower extremities, occlusion of each superficial femoral and deep femoral arteries, prominent plaque in the anterior and posterior tibial arteries bilaterally. 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 OBJECTIVE: Vital Signs: Temperature 97.9 degrees, pulse 75, respiratory rate 18, blood pressure 103/86, oxygen saturation 95% on room air. HEENT: Head normocephalic. No trauma. PERRLA. Neck: Supple. No JVD. No masses. Central trachea. Chest: Clear to auscultation. No wheezing. No rales. Cardiovascular: Regular rhythm and rate. No murmurs. Abdomen: Soft, nontender, nondistended. No hepatosplenomegaly. Extremities: Bilateral lower extremity edema. 2+, up to the knee. There is some coldness at the level of the left lower extremity. Neurological: The patient is alert and oriented x3. He has left-sided weakness around 3 to 4/5 with dysarthria. This patient is alert. LABORATORY: WBC 9.6, hemoglobin 10.4, hematocrit 31.4, platelets 292,000. Sodium 140, potassium 4.4, chloride 94, bicarbonate 24, BUN 87, creatinine 12.6, glucose 110, calcium 8.9. ASSESSMENT AND PLAN: 1. End-stage renal disease, on hemodialysis. He had hemodialysis today. This patient is feeling better. We will continue following the recommendations of Nephrology Department. 2. Left lower extremity pain. 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 Surgery Department is following this patient pending recommendations. 3. Hypertension. Continue with the same medication. We will hold the blood pressure medication today because the blood pressure is around 100. 4. Type 2 diabetes. Hemoglobin A1c is 5. He is not on any medication at this moment. We will continue with the same management. 5. Peripheral vascular disease. As above. 6. History of coronary artery disease status post coronary artery bypass graft . He is not complaining of shortness of breath or chest pain at this moment. We will monitor. 7. Tobacco abuse. This patient has been has been highly advised against tobacco abuse. We will continue with daily cessation education. 8. History of cerebrovascular accident x2 with left-sided weakness and dysarthria. We will monitor. 9. Deep venous thrombosis prophylaxis. Continue with heparin subcutaneously. cc: Christopher Correa MD
[2017-01-02] MEDS: ULTRAM PO PRN ×2 (02:03→11:28)
[2017-01-02] MEDS ORDERED: TIGHT: 0.2 ML/HR MISC PRN (06:51)
[2017-01-02] MEDS ORDERED: NS 2,000 ML MISC PRN (06:51)
[2017-01-02] MEDS ORDERED: HEPARIN IV PRN (06:51)
[2017-01-02] MEDS ORDERED: HEPARIN ONE (07:11)
[2017-01-02] MEDS ORDERED: NS 2,000 ML ONE (07:11)
[2017-01-02 07:46] LABS: CALCIUM 8.5 mg/dL (8.8-10.2); POTASSIUM 4.4 mmol/L (3.5-5.1)
--- NOTE | 2017-01-02 09:00 | PROGRESS NOTE ---
DATE: 01/02/2017 SUBJECTIVE: He is sitting up and his pain is much better in the erect position. His right foot does not hurt. No shortness of breath. OBJECTIVE: Vital Signs: Blood pressure 86/62, heart rate 83, respiration 18, afebrile. Generally: He is a chronically ill man, in no distress. Skin: Warm and dry. HEENT: Conjunctivae are pink. Heart: Regular. Lungs: Equal without crackles. Abdomen: Soft, nontender. Bowel sounds present. Extremities: Have trace edema. No clubbing or cyanosis. LABORATORY DATA: Sodium 138, potassium 4.4, chloride 95, bicarbonate 25, BUN 56, and creatinine 8.6. Hemoglobin 10.4. IMPRESSIONS: 1. End-stage kidney disease. We will repeat dialysis again today. He went 2 weeks without dialysis. 2. Electrolytes are in target. 3. Ischemic rest pain in the left foot. He had a CT angiography performed yesterday and Dr. Borja is on the case to assist with management. 4. Anemia, stable. cc: Jacinto Garland MD
[2017-01-02] MEDS: COREG PO SCH ×2 (10:58→23:08)
[2017-01-02] MEDS: PRINIVIL PO SCH (10:59)
[2017-01-02] MEDS: HEPARIN SUBQ SCH ×2 (11:13→23:08)
[2017-01-02] MEDS: LIPITOR PO SCH (11:13)
[2017-01-02] MEDS: HUMULIN R SUBQ SCH ×4 (11:29→23:08)
--- NOTE | 2017-01-02 13:43 | PROGRESS NOTE ---
DATE: 01/02/2017 SUBJECTIVE: This patient states that he is feeling better. He had dialysis today as well, his blood pressure has been in the 80s, I just stopped all his blood pressure medications. He has no symptoms. We had a CT angiogram done of the abdominal aorta with run off lower extremity that showed arteriosclerosis in the abdomen, pelvis and lower extremities, occlusion of each superficial femoral and deep femoral arteries, prominent plaque in the anterior and posterior tibial arteries bilaterally. 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 OBJECTIVE: Vital Signs: Temperature 98.1 degrees, pulse 83, blood pressure 86/62, O2 saturation 100% on room air. HEENT: Head normocephalic. No trauma. PERRLA. Neck: Supple. No JVD. No masses. Central trachea. Chest: Clear to auscultation. No wheezing. No rales. Cardiovascular: RRR. No murmurs. Abdomen: Soft, nontender, nondistended. No hepatosplenomegaly. Extremities: Bilateral lower extremity edema around 1+, up to the knee. There is some coldness at the level of the left lower extremity. Neurological: The patient is alert and oriented x3. He has left-sided weakness, around 3-4/5 with dysarthria. This patient is alert. LABORATORY: Sodium 138, potassium 4.4, chloride 95, bicarbonate 25, BUN 56, creatinine 8.6, glucose 89, calcium 8.5, folate 8.6. ASSESSMENT AND PLAN: 1. End-stage renal disease on hemodialysis. He had hemodialysis today. This patient is feeling better. We will continue following the recommendation of Nephrology Department. 2. Left lower extremity pain. We had a CT angiogram that showed multiple arterial abnormalities, Surgery Department is on board. I will follow their recommendations. 3. Hypertension, actually I stopped all his blood pressure medication. His blood pressure has been low, will monitor. 4. Type 2 diabetes. He is not getting any treatment for diabetes, the blood sugar is controlled. 5. Peripheral vascular disease. As I mentioned before, he has severe atherosclerosis that started from the abdomen down to the lower extremities. 6. History of coronary artery disease, status post coronary artery bypass graft. He is not complaining of shortness of breath or chest pain at this moment. We will monitor. 7. Tobacco abuse. This patient has been highly advised against tobacco abuse. Will continue with daily cessation education. 8. History of cerebrovascular accident times two with left-sided weakness and dysarthria. Will monitor. 9. Deep vein thrombosis prophylaxis. Continue with heparin subcutaneously. cc: Christopher Correa MD
[2017-01-02] MEDS ORDERED: NS 250 ML IV ONE (14:06)
--- NOTE | 2017-01-02 18:15 | PROGRESS NOTE ---
DATE: 01/02/2017 The patient is out of his room this morning. I reviewed his chart and vital signs and things seem to be going well. He is having dialysis. CT angiogram shows a right common iliac aneurysm and extensive peripheral vascular disease. He has had a left saphenous vein harvest in the past. Will get an ultrasound and examine his right vein for conduit and will make plans in the near future for possible endovascular coverage of his aneurysm which is quite large, greater than 4 cm, and possible proximal tibial bypass to help with ischemic rest pain. The patient was in dialysis. I was unable to examine him today but per the record, I do not see anything acute. His labs seem okay. Vital signs seem okay. We will follow up magpping. I have discussed with Dr. Christopher. Will continue with operative planning in the future. cc: Aileen Borja MD MTDD
[2017-01-03] MEDS: HUMULIN R SUBQ SCH ×4 (07:11→22:40)
[2017-01-03] MEDS ORDERED: HEPARIN ONE (07:17)
[2017-01-03] MEDS ORDERED: NS 2,000 ML ONE (07:17)
[2017-01-03 07:19] LABS: CALCIUM 8.3 mg/dL (8.8-10.2); POTASSIUM 4.5 mmol/L (3.5-5.1)
[2017-01-03] MEDS ORDERED: HEPARIN IV PRN (07:31)
[2017-01-03] MEDS ORDERED: TIGHT: 0.2 ML/HR MISC PRN (07:31)
[2017-01-03] MEDS ORDERED: NS 2,000 ML MISC PRN (07:31)
[2017-01-03] MEDS ORDERED: MORPHINE IV ONE (08:37)
--- NOTE | 2017-01-03 10:14 | PROGRESS NOTE ---
DATE: 01/03/2017 SUBJECTIVE: The patient is sitting up on the side of the bed. He continues to complain of pain to his leg. He states that he wants to go home today. OBJECTIVE: Vital Signs: Temperature 98.2 degrees, pulse 92, respiratory rate 18, blood pressure 118/62. Intake 990 mL and output 1 liter. General: On exam, a middle-aged gentleman, appears older than stated age, chronically ill-appearing, sitting up on the side of the bed eating breakfast. He is in no acute distress. HEENT: Normocephalic, atraumatic. Oral mucosa is moist. Dentition poor. Conjunctivae pink. Neck: Supple. No JVD noted. Cardiovascular: Regular rate and rhythm. There is no murmur or gallop appreciated. Pulmonary: He has equal excursion. He is clear bilaterally. He is on room air. Abdomen: Soft, with positive bowel sounds. Genitourinary: Not inspected. He has minimal void with hemodialysis assist. Extremities: He continues to have trace to 1+ pretibial edema. No clubbing or cyanosis noted. Integumentary: The skin is dry, warm. No rash noted. LABORATORY DATA: Sodium 138, potassium 4.5, CO2 of 25, creatinine 6.8, calcium 8.3. ASSESSMENT AND PLAN: 1. End-stage renal disease management. We are again repeating his dialysis today secondary to his significant noncompliance prehospitalization. We will plan to dialyze him on a 2 potassium bath/ultrafiltration as tolerated, 4-hour treatment. 2. Electrolytes, acid-base balance, anemia. These have been stable. See above for plan. 3. Ischemic pain to the left leg. Followed by Dr. Borja and Dr. Christopher. 4. Fluid volume. He is not overloaded. 5. Blood pressure controlled. Seen, data reviewed, discussed with Keegan Mcmillan on 01/03/17. I agree with the above assessment and plan of care. rg Dictated by EDILMA Hebert for Jacinto Garland MD cc: Jacinto Garland MD [facility]
[2017-01-03] MEDS: COREG PO SCH ×2 (14:24→22:40)
[2017-01-03] MEDS: HEPARIN SUBQ SCH ×2 (14:24→22:32)
[2017-01-03] MEDS: PRINIVIL PO SCH (14:25)
[2017-01-03] MEDS: LIPITOR PO SCH (14:25)
[2017-01-03] MEDS: ULTRAM PO PRN (14:29)
--- NOTE | 2017-01-03 14:43 | PROGRESS NOTE ---
DATE: 01/03/2017 SUBJECTIVE: This patient is getting dialysis at this moment. He feels better but he is still complaining of left lower extremity pain. He denies nausea, vomiting, diarrhea, constipation. No chest pain. No shortness of breath. OBJECTIVE: Vital Signs: Temperature 98.2 degrees, pulse 92, respiratory rate 18, blood pressure 118/62, O2 saturation 100% on room air. HEENT: Head normocephalic. No trauma. PERRLA. Neck: Supple. No JVD. No masses. Central trachea. Chest: Clear to auscultation. No wheezing. No rales. Cardiovascular: RRR. No murmurs. Abdomen: Soft, nontender, nondistended. No hepatosplenomegaly. Extremities: Bilateral lower extremity edema, around 1+ up to the knee. There is some coldness at the level of the left lower extremity. Neurological: Patient is alert and oriented x3. He has a left side weakness around 3 to 4/5 with dysarthria. This patient is alert. LABORATORY: Sodium 138, potassium 4.5, chloride 97, bicarbonate 25, BUN 41, creatinine 6.8, glucose 90, calcium 8.3. ASSESSMENT AND PLAN: 1. End-stage renal disease, on hemodialysis. He is getting hemodialysis today. He is feeling better. 2. Left lower extremity pain. We had a CT angiogram that showed multiple arterial abnormalities. Surgery Department is on board. We will follow their recommendations, and they asked for a venous mapping of the lower extremities of the great saphenous vein, probably they will do some kind of procedure, but I am not sure if this is going to be as an inpatient or outpatient. 3. Hypertension, he is not on any blood pressure medication. His blood pressure has been under control and sometimes he has been hypotensive. 4. Type 2 diabetes. He is not getting any treatment for diabetes. His blood sugar is controlled. 5. Peripheral vascular disease. As I mentioned before, this patient has severe arteriosclerosis that started from the abdomen down to the lower extremities, and also he has an aneurysm. 6. History of coronary artery disease status post CABG. He is not complaining of shortness of breath or chest pain at this moment. We will monitor. 7. Tobacco abuse. This patient has been highly advised against tobacco abuse. We will continue with daily cessation education. 8. History of CVA x2 with left-sided weakness and dysarthria. Will monitor. 9. DVT prophylaxis. Continue with heparin subcutaneously. cc: Christopher Correa MD
[2017-01-03] MEDS: MORPHINE IV PRN ×3 (15:43→22:31)
--- NOTE | 2017-01-03 18:17 | Extremity Venous Study ---
PROCEDURE NAME: Venous U/S Bilateral Legs - 12/29/2016 REFERRING PHYSICIAN: Dr. Quinn. READING PHYSICIAN: Dr. Clark. CHANNEL MARKETING MANAGER: Jesus. INDICATION: Bilateral leg swelling. FINDINGS: The deep and superficial veins of both lower extremities were imaged throughout their course. All are compressible with forward flow. No thrombus is appreciated. INTERPRETATION: No evidence of deep or superficial venous thrombosis in either lower extremity. cc: Mj Clark MD
[2017-01-04] MEDS: ZOFRAN IV PRN (00:46)
[2017-01-04] MEDS: HUMULIN R SUBQ SCH ×3 (07:05→18:06)
[2017-01-04 07:08] LABS: MANUAL DIFF NEEDED? NO
[2017-01-04 07:19] LABS: BASO% 0.4 % (0.0-0.8); EOS# 0.13 X1000 (0.0-0.7); EOS% 1.6 % (0.0-10.0); HEMATOCRIT 29.6 % (42.0-52.0); HEMOGLOBIN 9.6 g/dL (14.0-18.0); IMM GRAN# 0.02 X1000 (0.0-0.04); IMM GRAN% 0.2 % (0.0-0.5); LYMPH# 1.45 X1000 (1.2-3.4); LYMPH% 17.7 % (20.5-51.1); MCH 26.1 PG (27-31); MCHC 32.4 g/dL (33-37); MCV 80.4 FL (81-99); MONO# 0.98 X1000 (0.11-0.59); MPV 10.8 FL (7.4-10.4); NEUT% 68.1 % (42.2-75.2); PLT 197 X1000 (130-400); RBC 3.68 XMIL (4.7-6.1)
[2017-01-04 07:38] LABS: CALCIUM 8.9 mg/dL (8.8-10.2); POTASSIUM 3.8 mmol/L (3.5-5.1)
[2017-01-04] MEDS: MORPHINE IV PRN ×4 (08:38→20:52)
--- NOTE | 2017-01-04 08:59 | PROGRESS NOTE ---
DATE: 01/04/2017 SUBJECTIVE: He continued to have pain in his feet, but he is dialyzing and otherwise clinically is doing okay. OBJECTIVE: Vital signs: No fever, no tachycardia. Blood pressure okay for him. General: He is alert, sitting on the edge of the bed with feet dangling. Extremities: His lower extremities are neurologically intact. His feet are cool to the level of the ankle bilaterally, and he has got chronic ischemic changes. Integumentary: His integument is otherwise warm and dry. Abdomen: Soft. Neurologic: He is alert and oriented, seems to have a good grasp of his current situation. LABS: Labs were reviewed. White count is normal today. The hematocrit is 39. Creatinine is 6.3. Potassium is 3.8 now. Glucose 121. IMAGING: CT angiogram of his abdomen with runoff to his lower extremity shows a large, greater than 4 cm, iliac aneurysm on the right and severe diffuse peripheral vascular disease with above- the-knee, popliteal and tibial disease to the level of the ankle bilaterally. ASSESSMENT AND PLAN: A 56-year-old male with ischemic rest pain and a large right iliac aneurysm. His symptoms are worse on the left. Aneurysm is on the right, and he has severe disease bilaterally, and his ABIs are actually lower on the right than they are on the left. I discussed the case with Dr. Christopher. Most likely, we will be able to treat the aneurysm with a covered stent and the iliac percutaneously, and will need a [id number] bypass We have obtained vein studies. His left vein has been harvested, and his right is of very poor quality, so most likely will need a prosthetic bypass. We have discussed this with the patient. We are discussing with the device representatives obtaining an appropriate stent and making operative planning. Dr. Christopher is aware, and will discuss further with the patient, but in the meantime, he has a bit of a social issue with difficulty arriving at the hospital, requiring IV pain medicine currently for his ischemic rest pain. Will continue to follow along pending definitive surgical plans. cc: Aileen Borja MD
[2017-01-04] MEDS: COREG PO SCH ×2 (09:03→20:47)
[2017-01-04] MEDS: LIPITOR PO SCH (09:03)
[2017-01-04] MEDS: PRINIVIL PO SCH (09:03)
[2017-01-04] MEDS: HEPARIN SUBQ SCH ×2 (09:03→20:47)
[2017-01-04] MEDS ORDERED: NS 2,000 ML MISC PRN (09:06)
[2017-01-04] MEDS ORDERED: HEPARIN IV PRN (09:06)
[2017-01-04] MEDS ORDERED: TIGHT: 0.2 ML/HR MISC PRN (09:06)
[2017-01-04] MEDS ORDERED: NS 2,000 ML ONE (09:08)
[2017-01-04] MEDS ORDERED: HEPARIN ONE (09:09)
[2017-01-04] MEDS ORDERED: MORPHINE ONE (10:49)
--- NOTE | 2017-01-04 14:27 | PROGRESS NOTE ---
DATE: 01/04/2017 SUBJECTIVE: This patient is getting dialysis today. He feels better, but he is still complaining of left lower extremity pain. Surgery Department will talk to the patient and probably the family about surgery. This patient has severe atherosclerosis and also he has an aneurysm that has to be repaired. Surgery Department is trying to get all the materials to do the surgery. In the meantime, I want to keep the patient with pain medication and follow up with Nephrology. OBJECTIVE: Vital Signs: Temperature 97.9 degrees, pulse 79, respiratory rate 18, blood pressure 114/75, oxygen saturation 95% on room air. HEENT: Head normocephalic. No trauma. PERRLA. Neck supple. No JVD. No masses. Central trachea. Chest: Clear to auscultation. No wheezing. No rales. Cardiovascular: RRR. No murmurs. Abdomen soft, nontender, nondistended. No hepatosplenomegaly. Extremities: Bilateral lower extremity edema about 1+ up to the mid leg. There is some coldness at the level of the left lower extremity and pain. Neurologic: The patient is alert and oriented x3. He has left-sided weakness around 3-4/5 with dysarthria. This patient is alert. LABORATORY: Hemoglobin 9.6, sodium 137, potassium 3.8, chloride 93, bicarbonate 27. BUN 45, creatinine 6.3, glucose 121. Calcium 8.9. ASSESSMENT AND PLAN: 1. End-stage renal disease, on hemodialysis. He is getting dialysis today again. He is feeling better. He is not having shortness of breath or chest pain. 2. Left lower extremity pain. We had a CT angiogram that showed multiple arterial abnormalities, arteriosclerosis. Surgery Department is on board. They will discuss with the patient to go ahead and do the surgery. They were asking for all the material that they will need. 3. Iliac aneurysm on the right and severe diffuse peripheral vascular disease. Again, Surgery is on board, and they are trying to plan surgery on this patient. We will continue with pain medication. 4. Hypertension. He is not on any blood pressure medication. His blood pressure has been under control. 5. Type 2 diabetes. He is not getting any treatment for diabetes. His blood sugar is controlled. 6. Peripheral vascular disease as above. 7. History of coronary artery disease, status post coronary artery bypass graft. He is not complaining of shortness of breath or chest pain at this moment. We will monitor. 8. Tobacco abuse. This patient has been highly advised against tobacco abuse. We will continue with daily cessation education. 9. History of CVA x2 with left-sided weakness and dysarthria. Will monitor. 10. Deep venous thrombosis prophylaxis. Continue with heparin subcutaneously. cc: Christopher Correa MD
--- NOTE | 2017-01-04 14:58 | PROGRESS NOTE ---
DATE: 01/04/2017 SUBJECTIVE: Patient sitting up on the side of the bed. He underwent dialysis today without issue. He states that the swelling in his legs has gone down. He is in agreement to stay in the hospital until Surgery can complete their workup and possible intervention. PHYSICAL EXAMINATION: Vital Signs: Temperature 97.9 degrees, pulse 79, respiratory rate 18, blood pressure 114/75. Intake not measured. Output 2.5 liters. General: Middle-aged gentleman sitting up in the bed in no acute distress. Awake and alert. Interacting appropriately. Family is at the bedside. HEENT: Normocephalic, atraumatic. Oral mucosa moist. Neck : Supple. No JVD. Cardiovascular: Regular rate and rhythm, without murmur or gallop. Pulmonary: Equal excursion. He is clear bilaterally. He remains on room air. Abdomen: Soft, with positive bowel sounds. Genitourinary: Not inspected. Has hemodialysis. Extremities: Trace pretibial edema, right greater than left. Integumentary: Skin is warm and dry, without rash or lesion. LABORATORY DATA: WBC of 8.1, hemoglobin 9.6. Sodium 137, potassium 3.8, CO2 of 27, BUN 45, creatinine 6.3, calcium 8.9. ASSESSMENT AND PLAN: 1. End-stage renal disease management. We dialyzed him again today. Will probably go ahead and dialyze him again Sunday and then get him back, hopefully, on a Sunday, Sunday, Sunday schedule if possible. We will make a determination based on his laboratories tomorrow. 2. Ischemic pain to the left leg, followed by Dr. Borja and Dr. Christopher. There is a preliminary plan for a femoral-tibial bypass and stent graft. Dr. Borja and Dr. Christopher are managing this. 3. Electrolytes, acid-base balance, anemia. These are all in target. 4. Fluid volume. He is not overloaded. Seen, data reviewed, discussed with Keegan Mcmillan on 01/04/17. I agree with the above assessment and plan of care. rg Dictated by EDILMA Hebert for Jacinto Garland MD cc: Jacinto Garland MD [facility]
[2017-01-05] MEDS: HUMULIN R SUBQ SCH ×5 (03:18→21:27)
[2017-01-05] MEDS: MORPHINE IV PRN ×5 (07:14→21:27)
[2017-01-05 07:25] LABS: CALCIUM 8.8 mg/dL (8.8-10.2)
[2017-01-05 07:27] LABS: POTASSIUM 4.6 mmol/L (3.5-5.1)
[2017-01-05] MEDS: HEPARIN SUBQ SCH ×2 (08:08→21:27)
[2017-01-05] MEDS: COREG PO SCH ×2 (08:08→21:27)
[2017-01-05] MEDS: PRINIVIL PO SCH (08:08)
[2017-01-05] MEDS: LIPITOR PO SCH (08:08)
--- NOTE | 2017-01-05 13:49 | PROGRESS NOTE ---
DATE: 01/05/2017 SUBJECTIVE: His pain is controlled as long as he keeps his foot dangling off the bed. No shortness of breath. He is sleeping but easily arousable. OBJECTIVE: Vital Signs: Blood pressure 112/52, heart rate 81, respiration 18, afebrile. Generally: He is in no acute distress. Skin: Warm and dry. HEENT: Conjunctivae are pink. Neck: Neck veins are not distended. Heart: Regular. Lungs: Have equal breath sounds. No crackles. Abdomen: Soft, nontender. Bowel sounds present. Extremities: Have no edema, clubbing, or cyanosis. LABORATORY DATA: Sodium 139, potassium 4.6, chloride 97, bicarbonate 29, BUN 37. Creatinine 5.2. Hemoglobin 9.6. IMPRESSION: 1. End-stage kidney disease. He will be due for his next dialysis treatment tomorrow. 2. Electrolytes/acid base/anemia, all acceptable today. His anemia is below target but stable. 3. Rest pain left leg. Iliac aneurysm. Dr. Borja and Dr. Christopher are working on a plan. 4. Hypertension well controlled. cc: Jacinto Garland MD
--- NOTE | 2017-01-05 15:10 | PROGRESS NOTE ---
DATE: 01/05/2017 SUBJECTIVE: The patient notes he feels a little bit better today. He states that he is ready to have surgery. He denies any current chest pain, palpitations. He denies any fevers or chills. He denies any other complications. PHYSICAL: Temperature 98, pulse 88, respiratory 20, BP 113/58. Saturation 98% on room air. The patient is sitting up on the side of the bed. He is in no current respiratory distress. HEENT: Normocephalic. Neck supple. CV: Regular rate. Chest: Relatively clear. No wheezing. Good air movement. Abdomen is soft, nondistended. Extremities: He has edema in bilateral lower extremities. He has pain in the left lower extremity to palpation. LABORATORY DATA: Hemoglobin and hematocrit 9 and 29. WBC 8. Potassium 3.8, sodium 137. Creatinine 6.3. ASSESSMENT: 1. End-stage renal disease, currently on hemodialysis. He received hemodialysis yesterday. 2. Left lower extremity pain and decreased blood flow. 3. Iliac aneurysm. 4. Severe diffuse peripheral vascular disease. 5. Hypertension. 6. Type 2 diabetes. 7. Known coronary artery disease. 8. Chronic tobacco abuse. PLAN: Surgery currently is planning on surgical intervention. I am not sure if this has been scheduled. His blood pressure and labs certainly are stable at this point. No further changes will be made. We will continue pain control and follow. cc: Jin Guzman MD
--- NOTE | 2017-01-05 15:27 | Extremity Venous Study ---
PROCEDURE NAME: Vein Mapping Right GSV - 01/03/2017 PROCEDURE: Bilateral lower extremity venous mapping for operative planning. REQUESTING PHYSICIAN: Aileen Borja MD. FINDINGS: On the right side, zone 1 greater saphenous vein 3 mm, zone 2 greater saphenous vein 1.6, zone 3 is 1.3, zone 4 is 1.5. Zone 5 greater saphenous vein is 2.1, zone 6 is 1.2, zone 7 is 1.5, zone 8 is 2.3 on the right. The lesser saphenous vein is 3.9 at zone 5. Zone 6 is 2.5, zone 7 is 2.5, zone 8 is 2.0. On the left side, the greater saphenous vein has been harvested in its entirety. On the left, the lesser saphenous zone 5 is 3.1, zone 6 is 2.8, zone 7 is 2.3, zone 8 is 2.0. SUMMARY: Very poor venous options. The greater saphenous vein is very small throughout, although it is compressible. The lesser saphenous vein bilaterally is marginal, but there is unlikely adequate segment for a femoral-distal tibial bypass as planned. There are some chronic wall changes of the lesser saphenous veins bilaterally, but they do appear compressible throughout. cc: Aileen Borja MD
[2017-01-06] MEDS: MORPHINE IV PRN ×4 (01:47→20:45)
[2017-01-06] MEDS: NORCO-7.5 PO PRN (02:29)
[2017-01-06] MEDS: HUMULIN R SUBQ SCH ×4 (06:27→23:13)
[2017-01-06] MEDS ORDERED: TIGHT: 0.2 ML/HR MISC PRN (08:13)
[2017-01-06] MEDS ORDERED: NS 2,000 ML MISC PRN (08:13)
[2017-01-06] MEDS ORDERED: HEPARIN IV PRN (08:13)
[2017-01-06] MEDS ORDERED: NS 2,000 ML ONE (09:17)
[2017-01-06] MEDS ORDERED: HEPARIN ONE (09:17)
[2017-01-06] MEDS ORDERED: EPOGEN SUBQ ONE (10:25)
--- NOTE | 2017-01-06 11:03 | PROGRESS NOTE ---
DATE: 01/06/2017 SUBJECTIVE: Mr. Cantrell is about the same. His pain is adequately controlled with his current prescription. He is currently undergoing dialysis. OBJECTIVE: Vital Signs: Blood pressure 100/54, heart rate 82, respirations 15 and afebrile. Intake 600 mL; output zero. General: On physical exam, no acute distress. Skin: Warm and dry. Eyes: Conjunctivae are pink. Neck: Neck veins not distended. Heart: Regular with a soft murmur and a gallop. Lungs: Have equal breath sounds. No crackles. Abdomen: Soft, nontender. Bowel sounds are present. Extremities: Have 1+ edema. No clubbing or cyanosis. LABORATORY DATA: Sodium 139, potassium 4.6, chloride 97, bicarbonate 29, BUN 37, creatinine 5.2, hemoglobin 9.6. IMPRESSION: 1. End-stage kidney disease. He is currently undergoing his routine hemodialysis. 2. Electrolytes/acid base in target. 3. Anemia. We will dose with erythropoietin times one. cc: Jacinto Garland MD
[2017-01-06] MEDS: LIPITOR PO SCH (12:47)
[2017-01-06] MEDS: HEPARIN SUBQ SCH ×2 (12:49→20:41)
[2017-01-06] MEDS: PRINIVIL PO SCH (13:52)
[2017-01-06] MEDS: COREG PO SCH ×2 (13:52→20:42)
[2017-01-07] MEDS: MORPHINE IV PRN ×5 (02:56→23:01)
[2017-01-07] MEDS: HUMULIN R SUBQ SCH ×2 (06:42→11:30)
[2017-01-07] MEDS: LIPITOR PO SCH (09:27)
[2017-01-07] MEDS: HEPARIN SUBQ SCH ×2 (09:28→23:01)
[2017-01-07] MEDS: PRINIVIL PO SCH (09:29)
[2017-01-07] MEDS: COREG PO SCH ×2 (09:29→23:04)
[2017-01-07] MEDS: NORCO-7.5 PO PRN (11:25)
--- NOTE | 2017-01-07 13:17 | PROGRESS NOTE ---
DATE: 01/07/2017 SUBJECTIVE: Patient without any complaints. Still complains of pain in his left lower extremity. OBJECTIVE: Vital Signs: Temperature 98, pulse 90, blood pressure 94/64, satting 100% on room air. General: Patient is awake, alert, oriented. He had dialysis early today. He is feeling okay, currently. HEENT: Normocephalic, atraumatic. Neck: Supple. Cardiovascular: Regular rate. Chest: Relatively clear. Extremities: Moves all extremities. He is noted to have cool to the touch left lower extremity. Neurologic: He is awake, alert, oriented. LABORATORY DATA: No current labs today. ASSESSMENT: 1. End-stage renal disease, on hemodialysis. 2. Left lower extremity pain secondary to an iliac aneurysm. 3. 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 4. Hypertension. 5. Type 2 diabetes. Currently diet controlled. 6. Peripheral vascular disease. 7. Known coronary artery disease. 8. Chronic tobacco abuse. PLAN: Discussed with the patient that he needs to avoid cigarette smoking. We will follow along with General surgery and await their input on surgical intervention. cc: Jin Guzman MD
--- NOTE | 2017-01-07 13:21 | PROGRESS NOTE ---
DATE: 01/07/2017 SUBJECTIVE: Patient without any new complaints. States he is feeling okay, still having pain in his left lower extremity. OBJECTIVE: Vital Signs: Temperature 98.8, pulse 86, respiratory rate 18, blood pressure 103/64, satting 97% on room air. General: The patient is awake, alert, sitting on the side of the bed. He is in no respiratory distress. He is pleasant to talk with. Neck: Supple. Cardiovascular: Regular rate. Chest: Relatively clear. Extremities: Moves all extremities. He is noted to have cool to the touch unchanged from yesterday's exam on the left lower extremity. ASSESSMENT: 1. Peripheral vascular disease. 2. Left lower extremity pain secondary to peripheral vascular disease. 3. Iliac aneurysm on the right. 4. Type 2 diabetes diet controlled. 5. Hypertension stable. 6. Chronic tobacco abuse. PLAN: We will continue current medications. Continue to follow along with General Surgery. Await their final input on decision of further intervention. cc: Jni Guzman MD
[2017-01-08 06:33] LABS: HEMOGLOBIN 9.6 g/dL (14.0-18.0); MCH 25.9 PG (27-31); MCV 81.1 FL (81-99); MPV 12.1 FL (7.4-10.4); RBC 3.7 XMIL (4.7-6.1)
[2017-01-08 06:39] LABS: INR 1.09; PROTIME 11.5 Seconds (9.2-11.7)
[2017-01-08 06:53] LABS: ALBUMIN 3.5 g/dL (3.5-5.0); CALCIUM 9.6 mg/dL (8.8-10.2); POTASSIUM 5.6 mmol/L (3.5-5.1); TOTAL BILIRUBIN 0.36 mg/dL (0.20-1.00); TOTAL PROTEIN 8.3 g/dL (6.3-8.3)
[2017-01-08] MEDS: HUMULIN R SUBQ SCH ×5 (07:00→22:03)
[2017-01-08] MEDS: NORCO-7.5 PO PRN ×2 (08:18→14:59)
[2017-01-08] MEDS: COREG PO SCH ×2 (09:12→22:06)
[2017-01-08] MEDS: LIPITOR PO SCH (09:12)
[2017-01-08] MEDS: HEPARIN SUBQ SCH (09:12)
[2017-01-08] MEDS: PRINIVIL PO SCH (09:12)
[2017-01-08] MEDS: MORPHINE IV PRN ×4 (09:12→18:14)
[2017-01-08] MEDS: ZOFRAN IV PRN (09:13)
--- NOTE | 2017-01-08 12:26 | PROGRESS NOTE ---
DATE: 01/08/2017 TIME SEEN: 0755. SUBJECTIVE: Mr. Cantrell is resting quietly on the side of the bed. He states that he continues to have pain to his left foot. He states that the morphine does not last long and it wears off quickly. OBJECTIVE: Vital signs: His most recent vital signs, last temperature 98 degrees, blood pressure 105/58, heart rate 96, respirations 18. He is on room air. Last recorded saturation is 100%. He has had 480 in. He has had 0 recorded out. Labs: This morning, sodium 138, potassium 5.6, chloride 92, CO2 26, BUN 77, creatinine 7.6, glucose 87. His anion gap is 20. His calcium is 9.6. Albumin is 3.5. He continues with a total bilirubin 0.36, AST 35, ALT 55. White count 11.04, hemoglobin 9.6, hematocrit 30, with a platelet count of a 180,000. His protime is 11.5 with an INR of 1.09. PHYSICAL EXAMINATION: General: This is a 56-year-old male. He is currently resting on the side of the bed. He is in moderate distress secondary to left foot pain. HEENT: Normocephalic, atraumatic. Conjunctivae pink. He has JOAO. Mucous membranes moist. Neck: Supple. Trachea midline. No JVD. Cardiovascular: Regular rate and rhythm. He is without gallop. He does have a soft murmur. Lungs: Clear to auscultation anteriorly. Equal excursion. He is on room air. Abdomen: Round, soft, nontender. Positive bowel sounds. Genitourinary: Not inspected. Minimal void with dialysis assist. Extremities: Has cool _ to the left lower extremity. He has extreme pain to touch. No clubbing or cyanosis. No edema to the right. Integumentary: No rashes or lesions evident as noted to the left leg, mentioned. Neurological: Alert and oriented x3. ASSESSMENT AND PLAN: 1. End-stage renal disease. Patient is due for his routine dialysis today. We will place him on a 2 K bath. He is to dialyze for 3.5 hours. We will attempt to pull him to his dry weight. 2. Electrolytes and acid-base balance. These are stable. 3. Anemia. This remains low but stable. 4. Decreased circulation with pain to the left leg and iliac aneurysm. Dr. Borja continues to monitor and follow. I would like to thank you for allowing us to follow with this patient. Seen, data reviewed, discussed with Bear Moscoso on 01/08/17. I agree with the above assessment and plan of care. rg Dictated by EDILMA Kang for Jacinto Garland MD cc: EDILMA Kang MD [facility]
--- NOTE | 2017-01-08 15:44 | PROGRESS NOTE ---
DATE: 01/08/2017 SUBJECTIVE: Patient is still complaining of pain in the left lower extremity. Denies any fever or chills. OBJECTIVE: Vital Signs: Temperature 98.9 degrees, heart rate 101, respiratory rate 18, blood pressure 114/65, O2 saturation 100% on room air. General: This is a 56-year-old male, lying in bed, in no acute distress. HEENT: Head is normocephalic and atraumatic. Anicteric sclerae and pale conjunctivae. Mucous membranes moist. Neck: Supple. No JVD noted. No carotid bruits. No lymphadenopathy. No thyromegaly. Cardiovascular: S1, S2 heard. No murmurs, gallops, or rubs. Regular rate and rhythm. Respiratory: Clear bilaterally to auscultation. No work of breathing or using accessory muscles. Abdomen: Soft, nontender to palpation. Bowel sounds present. No organomegaly. Extremities: No clubbing, cyanosis. Peripheral pulses present in both legs. Bilateral lower extremity edema, 1+ up to the mid leg and knee at the level of the left lower extremity there is some coldness noted. Pain to palpation. Neurological: Patient is alert and oriented x3. He has left-sided weakness 3 to 4/5 with dysarthria. The patient is alert. LABORATORY DATA: White cell count .04, hemoglobin 9.6, hematocrit 30, platelets 180,000. BMP shows sodium 5.6, and creatinine 0.6 and BUN 77. ASSESSMENT/PLAN: 1. End-stage renal disease on hemodialysis. Dr. Garland is following this patient. Today he is due for hemodialysis. 2. Peripheral vascular disease. Patient complaining of left lower extremity pain and Dr. Borja from General Surgery is following this patient. He has talked with Dr. Christopher about possible surgery for revascularization. At this time, we will follow the recommendations from them. 3. Hypertension. The patient is not on any blood pressure medication. The blood pressure is so far under control. 4. Diabetes type 2. Blood sugars have been controlled so far well. 5. History of coronary artery disease, status post coronary artery bypass graft. Patient is not complaining of any chest pain. We will continue monitoring him closely. 6. Tobacco abuse. That has been addressed here in the hospital. 7. History of cerebrovascular accident x2 with left-sided residual weakness and dysarthria. 8. Deep vein thrombosis prophylaxis. 9. Overall, this patient is doing fine. Dr. Borja from General Surgery and Dr. Christopher from Vascular Surgery has been in touch, so we are awaiting for his next step in the management of this patient. cc: Pérez Walls MD
[2017-01-09] MEDS: HEPARIN SUBQ SCH ×3 (03:22→21:10)
[2017-01-09] MEDS: HUMULIN R SUBQ SCH ×4 (06:45→22:31)
[2017-01-09] MEDS ORDERED: NS 2,000 ML MISC PRN (07:42)
[2017-01-09] MEDS ORDERED: TIGHT: 0.2 ML/HR MISC PRN (07:42)
[2017-01-09] MEDS ORDERED: HEPARIN IV PRN (07:42)
[2017-01-09] MEDS: NORCO-7.5 PO PRN (07:54)
[2017-01-09] MEDS ORDERED: NS 2,000 ML ONE (08:41)
[2017-01-09] MEDS ORDERED: HEPARIN ONE (08:41)
[2017-01-09] MEDS ORDERED: NS 1,000 ML ONE (09:26)
[2017-01-09] MEDS ORDERED: ALBUMIN 25% IV ONE (09:39)
[2017-01-09] MEDS ORDERED: ALBUMIN 25% ONE (09:40)
[2017-01-09] MEDS: LIPITOR PO SCH (09:54)
[2017-01-09] MEDS: PRINIVIL PO SCH (09:54)
[2017-01-09] MEDS: COREG PO SCH ×2 (09:55→22:31)
[2017-01-09 12:45] LABS: ALBUMIN 3.5 g/dL (3.5-5.0); CALCIUM 9.3 mg/dL (8.8-10.2); POTASSIUM 5.9 mmol/L (3.5-5.1)
[2017-01-09] MEDS: MORPHINE IV PRN ×2 (13:10→17:28)
--- NOTE | 2017-01-09 15:57 | PROGRESS NOTE ---
DATE: 01/09/2017 TIME SEEN: 0900. SUBJECTIVE: Mr. Cantrell is currently resting in bed. He is on hemodialysis. He is tolerating this well. He states that he is not feeling well though. States his left foot is "killing him" and not sure how he is going to continue in this state. He denies chest pain or increased work of breathing. OBJECTIVE: Vital signs: His most recent vital signs, temperature 98.5 degrees , blood pressure 89/57, heart rate 112, respirations 18. He is on room air. Last recorded saturation 96%. He has had 0 recorded in and 0 recorded out. General: This is a 56-year-old male. He is currently sitting on the side of the bed. He is on dialysis. He is tolerating this well, though he complains of left foot pain. HEENT: Normocephalic, atraumatic. Conjunctivae pink. He has JOAO. Mucous membranes moist. Neck: Supple. Trachea midline. No JVD. Cardiovascular: Regular rate and rhythm. He has a soft murmur. He is without gallop. Lungs: Clear to auscultation anteriorly. Equal excursion. Abdomen: Round, soft, nontender. Positive bowel sounds. Extremities: Has cool left foot with some discoloration, extreme pain to touch, no clubbing or cyanosis. No edema to the right. Integumentary: No rashes or lesions evident except noted to the left foot. Neurological: Alert and oriented x3. LABORATORIES: His most recent labs, sodium 142, potassium 5.9 chloride 93, CO2 23, BUN 97, creatinine 9.6, glucose 93, anion gap 26, calcium 9.3, phosphorus 6.1, albumin 3.5. Previous hemoglobin 9.6 on the . ASSESSMENT AND PLAN: 1. Patient is due for his routine dialysis treatment today. He is to be placed on a 2K bath, dialyzed for 3.5 hours, attempt to pull him to his dry weight. Patient may require albumin secondary to having a low blood pressure. 2. Electrolytes. Patient has mild hyperkalemia with correction on dialysis. 3. Acid-base balance. This is stable. 4. Anemia. This remains low but stable. 5. Left foot pain. This continues to be followed by Dr. Borja. We will continue to monitor and follow. Titrate meds as required. rg I would to thank you for allowing us to follow with this patient. Seen, data reviewed, discussed with Bear Moscoso on 01/09/17. I agree with the above assessment and plan of care. rg Dictated by EDILMA Kang for Jacinto Garland MD cc: EDILMA Kang MD [facility]
--- NOTE | 2017-01-09 18:06 | PROGRESS NOTE ---
DATE: 01/09/2017 SUBJECTIVE: Continues to have pain in his legs and pretty much sleeps on the edge of the bed. OBJECTIVE: No fevers, low-grade tachycardia 102. Blood pressure has been low since dialysis with 71/42. General: He is sleeping with his feet dangling on the side of the bed. Stable chronic ischemic changes to his feet. LABS: Reviewed his labs. Potassium 5.9 this morning. Creatinine is 9.6. Glucose 143. Yesterday his white count was 11, hematocrit 30. ASSESSMENT AND PLAN: A 56-year-old male with a right iliac aneurysm and severe distal diffuse atherosclerotic disease causing ischemic rest pain in bilateral lower extremities. Symptoms worse on the left. I talked with Dr. Christopher. We have made plans for a covered stent placement to treat the right iliac aneurysm and a fem distal bypass to hopefully alleviate some of his ischemic rest pain and to protect against tissue loss. We have this scheduled for January 17. I have discussed this with the family going home versus remaining inpatient. Given his electrolyte derangements, his noncompliance with dialysis and the degree of his pain we have elected to keep him in house until that time for pain control. We will continue follow along and make recommendations further closer to the time of surgery. I have discussed this with the hospitalist service. cc: Aileen Borja MD
--- NOTE | 2017-01-09 18:23 | PROGRESS NOTE ---
DATE: 01/09/2017 SUBJECTIVE: This patient is still complaining about left lower extremity pain. No nausea, no fever, no vomiting, no chills. Surgery department is planning to go to the OR probably next 01/17/2017, the surgeon talked to the family and they decided to stay here in the hospital, they are concerned if this patient goes home probably he will need not go to dialysis or any appointment. Nephrology Department is on board and they are doing hemodialysis, they also cut down his blood pressure treatment. They removed lisinopril and they decreased the dose of carvedilol because his blood pressure has been low. They put this patient on Tramadol scheduled and I will increase the dose of [place] from 7.5 to 10. OBJECTIVE: Vital Signs: Temperature 97.6 degrees, pulse 102, respiratory rate 18, blood pressure 71/42, O2 saturation 96 on room air. HEENT: Head normocephalic. No trauma. PERRLA. Neck: Supple. No JVD. No masses. Central trachea. Chest: Clear to auscultation. No wheezing. No rales. Cardiovascular: RRR. No murmurs. Extremities: No clubbing, no cyanosis. Bilateral lower extremity 1+ to the mid leg and also left lower extremity there is some coldness noted, pain to palpation. Neurological: The patient is alert and oriented x3. He has left-sided weakness 3 to 4/5 with dysarthria. LABORATORY: WBC 142, potassium 5.9, chloride 93, bicarbonate 23, BUN 97, creatinine 9.6, glucose 93, calcium 9.3, phosphorus 6.1. ASSESSMENT AND PLAN: 1. End-stage renal disease on hemodialysis, Dr. Garland is following this patient. We will continue with hemodialysis schedule. 2. Peripheral vascular disease. Patient is complaining of left lower extremity pain and Dr. Borja from general surgery along with Dr. Christopher are following this patient and they are planning to do a vascular procedure next 01/17/2017. They have been talking to the family about this and they agree with the procedure but they do not want and leave the hospital and be readmitted, they say there is a high risk of this patient not going to dialyses or any appointment. 3. Hypotension. Lisinopril was removed from his medications and also the carvedilol was reduced by half. 4. Type 2 diabetes. Blood sugar has been controlled so far. 5. History of coronary artery disease status post coronary artery bypass graft. Patient is not complaining of any chest pain. Will continue to monitor. 6. Tobacco abuse. That has been addressed here in the hospital. Will continue with daily cessation education. 7. History of cerebrovascular accident x2 with left-sided residual weakness and dysarthria aware. 8. Deep vein thrombosis prophylaxis. This patient is on heparin subcutaneously. 9. Chronic pain. Today this patient has been placed on Tramadol and I will increase the dose of [place] from 7.5 to 10, will monitor. cc: Christopher Correa MD
[2017-01-09] MEDS ORDERED: NS 200 ML IV ONE (20:43)
[2017-01-09] MEDS ORDERED: NORCO-10 PO PRN (21:28)
[2017-01-09] MEDS: ULTRAM PO SCH (22:32)
[2017-01-10] MEDS: HUMULIN R SUBQ SCH ×3 (06:43→16:27)
[2017-01-10 07:28] LABS: MANUAL DIFF NEEDED? NO
[2017-01-10 07:45] LABS: BASO% 0.3 % (0.0-0.8); EOS# 0.02 X1000 (0.0-0.7); EOS% 0.2 % (0.0-10.0); HEMATOCRIT 26.7 % (42.0-52.0); HEMOGLOBIN 8.8 g/dL (14.0-18.0); LYMPH# 1.47 X1000 (1.2-3.4); LYMPH% 15.6 % (20.5-51.1); MONO# 1.17 X1000 (0.11-0.59); MONO% 12.4 % (1.7-9.3); MPV 12.9 FL (7.4-10.4); NEUT% 71.5 % (42.2-75.2); PLT 174 X1000 (130-400); RBC 3.38 XMIL (4.7-6.1)
[2017-01-10 08:08] LABS: POTASSIUM 5.9 mmol/L (3.5-5.1)
[2017-01-10] MEDS ORDERED: NS 2,000 ML ONE (08:46)
[2017-01-10] MEDS ORDERED: HEPARIN ONE (08:46)
[2017-01-10] MEDS ORDERED: HEPARIN IV PRN (09:09)
[2017-01-10] MEDS ORDERED: NS 2,000 ML MISC PRN (09:09)
[2017-01-10] MEDS ORDERED: TIGHT: 0.2 ML/HR MISC PRN (09:09)
[2017-01-10] MEDS ORDERED: ALBUMIN 25% ONE (09:19)
[2017-01-10] MEDS: COREG PO SCH (11:28)
[2017-01-10] MEDS: LIPITOR PO SCH (11:42)
[2017-01-10] MEDS: HEPARIN SUBQ SCH (11:42)
[2017-01-10] MEDS: ULTRAM PO SCH (11:42)
[2017-01-10] MEDS ORDERED: NS 250 ML IV ONE (11:58)
[2017-01-10] MEDS ORDERED: NS 250 ML ONE (12:04)
[2017-01-10] MEDS ORDERED: NS 500 ML ONE (13:52)
[2017-01-10] MEDS ORDERED: ATIVAN ONE (14:05)
[2017-01-10] MEDS ORDERED: VERSED ONE (14:15)
[2017-01-10] MEDS ORDERED: NS 1,000 ML ONE (14:21)
[2017-01-10] MEDS ORDERED: ATIVAN IV ONE (14:24)
[2017-01-10] MEDS ORDERED: KEPPRA 500 MG in NS 100 ML IV ONE (14:24)
[2017-01-10] MEDS ORDERED: VERSED IV ONE (14:28)
--- NOTE | 2017-01-10 14:34 | PROGRESS NOTE ---
DATE: 01/10/2017 TIME SEEN: 08. SUBJECTIVE: Mr. Cantrell is sitting on the side of the bed. He is rubbing his left foot. He states that he has not had any relief from pain. OBJECTIVE: His most recent vital signs: Temperature 98.5 degrees, blood pressure 83/52, heart rate 95, respirations 16. He is on room air. Last recorded saturation 99%. He has had 200 In. He has had 900 out per dialysis yesterday. LABORATORY DATA: Sodium of 137, potassium 5.9, chloride 97, CO2 of 23. BUN 60. Creatinine 6.4, glucose 112. Anion gap 17. Calcium 9. White count 9.44, hemoglobin 8.8, hematocrit 26.7, with a platelet count of 174,000. PHYSICAL EXAMINATION: This is a 56-year-old -[place] male. He is currently resting in bed. He is in moderate distress secondary to left foot pain. Skin is warm and dry. HEENT: Normocephalic, atraumatic. Conjunctiva is pale. He has JOAO. Mucous membranes moist. Neck is supple. Trachea midline. No JVD. Cardiovascular: Regular rate and rhythm. He has a soft murmur present. No gallop. Lungs are clear to auscultation anteriorly. Equal excursion. Abdomen is round, soft, nontender. Positive bowel sounds. Extremities: Cool left foot. This is darkened in extremity and is painful to touch. ASSESSMENT AND PLAN: 1. End-stage renal disease. The patient is due for dialysis in the a.m. Secondary to his hyperkalemia, we will plan to dialyze him today. We will place him on a 2 K bath. He is to dialyze for 3 hours. We will attempt to pull patient only to his dry weight without any challenge. The patient was hypotensive yesterday. We will plan to give him albumin 25 g today and repeat if indicated secondary to hypotension. 2. Electrolytes. The patient does have hyperkalemia, again with correction on dialysis today. 3. Acid-base balance. This is stable. 4. Anemia. This is stable. 5. Left foot pain. Patient is being followed by Dr. Borja. We will continue to titrate medications as required to assist with this pain and discomfort. I would to thank you for allowing us to follow with this patient. Seen, data reviewed, discussed with Bear Moscoso on 01/10/17. I agree with the above assessment and plan of care. rg Dictated by EDILMA Kang for Jacinto Garland MD cc: EDILMA Kang MD [facility]
--- NOTE | 2017-01-10 14:37 | Diag Imaging Result Document ---
PROCEDURE NAME: CHEST-PORTABLE - 01/10/2017 PORTABLE CHEST: COMPARISON: 12/29/2016. FINDINGS: Sternal wires and surgical clips are present. The lungs are well expanded. The heart is not enlarged. The vessels are not distended. No pneumonia. No pleural effusions identified. There is a granuloma in the right base and there are calcified right hilar lymph nodes. IMPRESSION: Negative chest. No change from the prior exam.
[2017-01-10] MEDS ORDERED: ATIVAN IV PRN (15:15)
[2017-01-10] MEDS ORDERED: NS 500 ML IV ONE (15:16)
--- NOTE | 2017-01-10 15:44 | EKG Report ---
Test Performed on : 01/10/2017 2:21:46 PM Test Reason : unresponsive Blood Pressure : / mmHG Vent. Rate : 080 BPM Atrial Rate : 080 BPM P-R Int : 108 ms QRS Dur : 098 ms QT Int : 466 ms P-R-T Axes : 000 144 -46 degrees QTc Int : 537 ms Sinus rhythm. with short OR Left posterior fascicular block (suspect arm lead reversal) ST \T\ T wave abnormality, consider inferior ischemia ST \T\ T wave abnormality, consider anterolateral ischemia Prolonged QT Abnormal ECG When compared with ECG of 29-DEC-2016 17:00, Marked T wave abnormality, consider anterior ischemia Confirmed by Lizzette NAVARRO, Alberto Bautista ([id number]) on 01/11/2017 6:34:07 PM
[2017-01-10 15:46] LABS: MANUAL DIFF NEEDED? NO
[2017-01-10 15:50] LABS: ALLEN TEST YES; BE -0.2 mmoll (-3.0-3.0); BLOOD TYPE ARTERIAL; DRAW SITE L RADIAL; METHB 1.8 % (0.0-1.5); O2(CT) 11.7 mL/dL (15.0-23.0); PCO2(98.6) 31 mmHg (35-45); PO2(98.6) 452 mmHg (60-100); SAMPLE BLOOD; SAO2 99.8 % (95.0-100.0); SRATE 12 BPM; THB 7.6 g/dL (11.5-17.4); TVOL 500 mL; pH(98.6) 7.48 (7.35-7.45)
[2017-01-10 15:51] VITALS: BP 63/50
[2017-01-10 15:53] LABS: MODALITY VENTILATOR
--- NOTE | 2017-01-10 15:55 | Diag Imaging Result Document ---
PROCEDURE NAME: CHEST/ABD TUBE PLACEMENT - 01/10/2017 SINGLE FRONTAL RADIOGRAPH OF THE LOWER CHEST AND UPPER ABDOMEN: COMPARISON: 01/10/2017. FINDINGS: There is a newly placed NG tube and ET tube. The tip of the ET tube projects over the trachea and above the los at about the T4 level. The tip of the NG tube projects below the diaphragm and is assumed to be in the fundus of the stomach in the expected position. Limited views of the chest are otherwise grossly stable as compared to the previous study. IMPRESSION: Interval placement of ET tube and NG tube as detailed above.
[2017-01-10 16:00] LABS: BASO% 0.3 % (0.0-0.8); EOS# 0.01 X1000 (0.0-0.7); EOS% 0.1 % (0.0-10.0); HEMATOCRIT 23.2 % (42.0-52.0); HEMOGLOBIN 7.4 g/dL (14.0-18.0); IMM GRAN# 0.02 X1000 (0.0-0.04); IMM GRAN% 0.2 % (0.0-0.5); LYMPH# 1.08 X1000 (1.2-3.4); LYMPH% 12.1 % (20.5-51.1); MCH 25.8 PG (27-31); MCHC 31.9 g/dL (33-37); MCV 80.8 FL (81-99); MONO# 0.83 X1000 (0.11-0.59); MONO% 9.3 % (1.7-9.3); MPV 12.5 FL (7.4-10.4); PLT 151 X1000 (130-400); RBC 2.87 XMIL (4.7-6.1)
[2017-01-10] MEDS ORDERED: NS 1,000 ML, NS 1,000 ML IV ONE ×2 (16:07)
[2017-01-10 16:24] LABS: CALCIUM 8.1 mg/dL (8.8-10.2); POTASSIUM 4.9 mmol/L (3.5-5.1); TOTAL BILIRUBIN 0.54 mg/dL (0.20-1.00); TOTAL PROTEIN 6.5 g/dL (6.3-8.3)
[2017-01-10] MEDS ORDERED: NS 2,000 ML IV ONE (16:45)
[2017-01-10 16:46] LABS: CK INDEX 1.4 (0.0-2.5); CK-MB 6.61 ng/mL (0.0-5.0)
[2017-01-10] MEDS ORDERED: ASPIRIN PR ONE (17:03)
--- NOTE | 2017-01-10 17:23 | PROGRESS NOTE ---
DATE: 01/10/2017 SUBJECTIVE: This patient has been transferred to the ICU. This patient was on the floor and he was about to be evaluated by physical therapy and he was found unresponsive and drooling and sweating. He was on respiratory distress, not following commands with periods of apnea. So we decided to intubate this patient at bedside and transfer this patient to the ICU. We noticed that the systolic blood pressure has been in the 60s. We are using only normal saline/resuscitation. I am not going to use for now pressors because of his severe vascular problems/peripheral vascular disease. I had a large conversation with his family members including brothers and sisters, and they decided to put this patient DNR inclusive. If he needs pressors they decided not to use it just mechanical ventilation, dialysis and fluids and of course, antibiotics. OBJECTIVE: Vital Signs: At this moment temperature 97 degrees, pulse 80, respiratory rate 14, blood pressure 63/50. Mean arterial pressure 54. O2 saturation 100% on mechanical ventilation 100% FiO2. HEENT: Head normocephalic. No trauma. PERRLA. Neck: Supple. No JVD. No masses. Central trachea. Chest: Coarse breath sounds bilaterally. No wheezing. Abdomen: Soft, nondistended. Positive bowel sounds. Extremities: No edema. No clubbing. There is coldness bilaterally at the level of the lower extremities. Neurological: This patient is on mechanical ventilation and unresponsive secondary to medication. LABORATORY: WBC 8.8, hemoglobin 7.4 hematocrit 23.2, platelets 151,000. Sodium 140, potassium 4.9, chloride 99, bicarbonate 20, BUN 38, creatinine 3.8, glucose 94. Calcium 8.1. Albumin 3. Troponin 1.4. Plasma lactate 6.2. ASSESSMENT AND PLAN: 1. Shock, likely cardiogenic. We have a troponin level of 1.4 and low blood pressure. We need to rule out any other possibilities as well. This patient has been hospitalized for 12 days with no signs of infection. 2. Acute respiratory failure. We will continue this patient on mechanical ventilation. The family decided to put this patient DNR level 2. No chest compression. No cardioversion. No pressors. 3. Severe hypotension. We are going to try to resuscitate this patient with just fluids, no pressors as per the family members. 4. Severe peripheral vascular disease. This patient has been complaining of left lower extremity pain for several days. The plan is to have surgery 01/17/2017. 5. End-stage renal disease on hemodialysis. Nephrology is on board. 6. Type 2 diabetes. The blood sugar has been controlled. 7. History of coronary artery disease status post CABG. The patient was not complaining of chest pain or shortness of breath. 8. Tobacco abuse. He has been advised against tobacco abuse. I talked to the family members today and they told me that he is still smoking. 1. History of CVA x2 with left-sided residual weakness and dysarthria. Aware. 2. DVT prophylaxis. We will keep this patient on heparin subcutaneously. 3. Chronic pain. Aware. Overall, this patient has poor prognosis. I already talked to the family about this and they seem to understand. This patient is DNR level 2 and they do not want pressors. cc: Christopher Correa MD
[2017-01-10] MEDS ORDERED: NS 1,000 ML IV SCH (18:41)
--- NOTE | 2017-01-11 06:23 | CONSULTATION ---
DATE OF CONSULTATION: 01/10/2017 REQUESTING PHYSICIAN: Christopher Correa MD REASON FOR CONSULTATION: Ventilator management. HISTORY OF PRESENT ILLNESS: Mr. Cantrell is a 56-year-old, black male with prior strokes, diabetes mellitus, end-stage renal disease on hemodialysis, ongoing tobacco use, severe peripheral vascular disease, severe coronary artery disease, who was admitted to the hospital with left lower extremity pain on 12/29/2016. He was evaluated by Dr. Borja and Dr. Christopher. His prognosis for both lower extremities was extremely poor given his extensive peripheral vascular disease. The patient was in dialysis earlier today. They have been struggling with his blood pressure both yesterday and today with systolics running in the 60s to 80s. The patient had a seizure-like event with brief CPR with intubation. He has been transferred back to the ICU. He remains hypotensive with volume resuscitation. An echocardiogram reveals diffuse ST-T wave abnormality inferior along with anterolateral. Family has requested no vasopressors and no CPR or advanced cardiac life support. PAST MEDICAL HISTORY/PROBLEM LIST: 1. End-stage renal disease. 2. Coronary artery disease, status post prior coronary artery bypass grafting. His cardiac catheterization on 05/23/2016 revealed 50% to 60% stenosis of the left main, 100% stenosis of the LAD with a patent vein graft to the LAD, subtotal occlusion with diffuse disease of the left circumflex, occluded graft to the left circumflex, occlusion of the right coronary artery, with an ejection fraction of 45%. Smoking cessation was recommended at that time. 3. Severe peripheral vascular disease. 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 4. Diabetes. 5. Hypertension. 6. Dyslipidemia. 7. History of noncompliance with dialysis due to leg pain. SOCIAL HISTORY: Ongoing tobacco use. No alcohol use listed. FAMILY HISTORY: Positive for heart disease, diabetes and hypertension. REVIEW OF SYSTEMS: Cannot be obtained. PHYSICAL EXAMINATION: General: Reveals a chronically ill-appearing male, who appears older than his stated age in no distress. He is poorly responsive. Vital Signs: Blood pressure 57/45, oxygen saturation 98%. HEENT: Pupils are equal but sluggish. Oropharynx evaluation is limited with endotracheal tube in place. Neck: Supple. Chest: Reveals diffuse crackles bilaterally. Cardiac Exam: Distant heart sounds. Normal S1, normal S2. Abdomen: Soft. Extremities: Reveal cold extremities including arms and lower extremities. LABORATORIES/DIAGNOSTIC DATA: Chest x-ray earlier this morning revealed no acute changes. Arterial blood gas reveals a pH 7.4, pCO2 of 31, PO2 of 452. EKG as per HPI. Chemistry: Sodium 140, potassium 4.9, chloride 99, bicarbonate 20, BUN 30, creatinine 3.8. CPK is elevated at 487. CPK-MB is 6.61. Troponin is elevated at 1.40. IMPRESSION: A 56-year-old with end-stage renal disease, severe coronary artery disease with multiple areas of ischemia noted on EKG, positive troponin level, extensive peripheral vascular disease who sustained a cardiopulmonary arrest. He is poorly responsive. He is currently in cardiogenic shock. His prognosis for surviving this hospitalization are extremely poor. If he does, he would clearly require revascularization or amputation of both lower extremities. Family has requested no vasopressor support or advanced cardiac life support. I agree with these recommendations. RECOMMENDATIONS: 1. Support pulmonary status with mechanical ventilation. 2. Initiate aspirin for acute myocardial infarction. 3. Volume resuscitation. 4. Prepare family for patient's . His prognosis is extremely poor. cc: Bora Smith MD
[2017-01-11] MEDS ORDERED: NEURONTIN PO SCH (09:00)
--- NOTE | 2017-01-12 11:27 | DISCHARGE SUMMARY ---
ADMISSION DATE: 12/29/2016 DISCHARGE DATE: 01/10/2017 The patient on 01/10/2017 at 19:37 CONSULTATION: 1. Dr. Garland with Nephrology. 2. Dr. Micah Borja with General Surgery. 3. Dr. Bora Smith with Pulmonology. PERTINENT PROCEDURES: 1. 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 2. Saphenous vein mapping showed very poor venous options. The greater saphenous vein was very small throughout but compressible. Lesser saphenous vein bilaterally was marginal but there is unlikely adequate segment for femoral distal tibial bypass as planned. There are some chronic wall changes of the lesser saphenous veins bilaterally. They appear to be compressible throughout. DISCHARGE DIAGNOSES: 1. Shock, likely cardiogenic. 2. Acute respiratory failure. The patient was mechanically ventilated. He was made a DNR level 2 by family. No chest compressions, cardioversions or pressors. 3. Severe hypotension necessitated with fluids. No pressors at family's request. 4. Severe peripheral artery disease. The patient complaining of pain for several days. Was set to have surgery on 01/17/2017. 5. End-stage renal disease on hemodialysis. 6. Type 2 diabetes, controlled. 7. History of coronary artery disease status post coronary artery bypass grafting. 8. Tobacco abuse. 9. Cerebrovascular accident x 2. History of left-sided residual weakness and dysarthria. 10. Chronic pain. 11. Code blue called on 01/10/2017 where patient was intubated on the floor and moved to the ICU, hopefully made a DNR level 2, and on 01/10/2017 at 19:37 in the ICU. HOSPITAL COURSE: Briefly, Mr. Cantrell is a 56-year-old, -[place] male with prior strokes, diabetes mellitus, end-stage renal disease on hemodialysis, ongoing tobacco abuse, severe peripheral vascular disease who was admitted to the hospital for left lower extremity pain. Evaluated by Dr. Borja and Dr. Christopher. His prognosis for both lower extremities was extremely poor given his extensive PVD. The patient was set to have surgery on 01/17/2017 ; however, on the morning of 01/10/2017. The patient was in dialysis. They were struggling with his blood pressures, both the day before and today with systolic running in the 60s to 80s. The patient had seizure lag events with brief CPR with intubation and transferred to the ICU. Family made him a DNR level 2. He remained hypotensive with volume resuscitation. EKG showed diffuse ST-T wave abnormalities. Family requested no vasopressors, no CPR or advanced cardiac life support. He was currently in cardiogenic shock. His prognosis for surviving the hospitalization were extremely poor. On the same day as his code blue, the patient on 01/10/2017 at 19:37. Dictated by EDILMA Goss for Christopher Correa MD cc: Christopher Correa MD MTDD
== END 2017-01-10 19:37 | disposition expired ==
LOC: ED 13:47 → SUATTDRO 19:39 → 3N 19:39 → ICU 01-10 14:58
PROVIDERS: ATTEND Internal Medicine